=== PATIENT | male | born 1940 | race Caucasian/White ===

== ENCOUNTER → 2016-11-13 | Outpatient (CLI) | payer MEDICARE ==
[2016-11-13 09:48] LABS: BASO # 0.1 x10^3/uL (0.0-0.2); BASO % 1 % (0-3); EOS # 0.4 x10^3/uL (0.0-0.7); EOS % 6 % (0-3); HEMATOCRIT 41.9 % (39.0-53.0); HEMOGLOBIN 14.1 g/dL (13.0-17.5); LYMPH # 1.1 x10^3/uL (1.0-4.8); LYMPH % 16 % (24-48); MEAN CORPUSCULAR HEMOGLOBIN 30 pg (25-35); MEAN CORPUSCULAR HGB CONC 34 g/dL (31-37); MEAN CORPUSCULAR VOLUME 88 fL (79-100); MONO # 0.9 x10^3/uL (0.0-1.1); MONO % 13 % (0-9); NEUT # 4.3 x10^3uL (1.8-7.7); NEUT % 64 % (31-73); PLATELET COUNT 171 x10^3/uL (140-400); RED BLOOD COUNT 4.76 x10^6/uL (4.30-5.70); RED CELL DISTRIBUTION WIDTH 15.6 % (11.5-14.5); WHITE BLOOD COUNT 6.8 x10^3/uL (4.0-11.0)
[2016-11-13 09:53] LABS: ALBUMIN 3.1 g/dL (3.4-5.0); CALCIUM 8.2 mg/dL (8.5-10.1); CREATININE 1.8 mg/dL (0.7-1.3); GFR 36.8; MAGNESIUM 2.1 mg/dL (1.8-2.4); PHOSPHORUS 3.3 mg/dL (2.6-4.7); POTASSIUM 4.5 mmol/L (3.5-5.1)
[2016-11-13 19:08] LABS: CREAT RD UR 255.9 mg/dL (Not Estab.); MICRO CREAT RATIO 13.1 mg/g creat (0.0-30.0); MICROALB RD UR 33.5 ug/mL (Not Estab.); TOTAL PROTEIN CREATININE RATIO 86 mg/g creat (0-200); UR PROTEIN RD 22.1 mg/dL (Not Estab.)
[2016-11-14 13:11] LABS: CALCIUM PTH 8.3 mg/dL (8.6-10.2); CREATININE PTH 1.55 mg/dL (0.76-1.27); PTH INTACT 106 pg/mL (15-65)
== END | disposition home or self-care (01) ==
LOC: LAB 08:35
PROVIDERS: ATTEND Internal Medicine Nephrology
DX: I12.9 Hypertensive chronic kidney disease with stage 1 through stage 4 chronic kidney disease, or unspecified chronic kidney disease (principal); E11.22 Type 2 diabetes mellitus with diabetic chronic kidney disease; N18.3 Chronic kidney disease, stage 3 (moderate); D35.00 Benign neoplasm of unspecified adrenal gland; E83.51 Hypocalcemia; R80.9 Proteinuria, unspecified; Z68.25 Body mass index [BMI] 25.0-25.9, adult
CPT/HCPCS: 36415; 80069; 82043; 82570; 83735; 83970; 84156; 85027

== ENCOUNTER → 2017-02-04 | Outpatient (CLI) | payer MEDICARE ==
[2017-02-04 09:26] LABS: HEMATOCRIT 42.6 % (39.0-53.0); HEMOGLOBIN 14.1 g/dL (13.0-17.5)
[2017-02-04 09:34] LABS: ALBUMIN 3.1 g/dL (3.4-5.0); ALBUMIN/GLOBULIN RATIO 0.8 (1.0-1.7); CREATININE 1.8 mg/dL (0.7-1.3); GFR 36.8; MAGNESIUM 1.9 mg/dL (1.8-2.4); PHOSPHORUS 3.6 mg/dL (2.6-4.7); POTASSIUM 4.5 mmol/L (3.5-5.1); TOTAL BILIRUBIN 0.6 mg/dL (0.2-1.0); TOTAL PROTEIN 6.8 g/dL (6.4-8.2)
[2017-02-04 09:43] LABS: CLARITY,URINE CLEAR; COLOR,URINE YELLOW
[2017-02-04 09:44] LABS: BACTERIA,URINE 0 /HPF (0-FEW); BILIRUBIN,URINE NEG (NEG); GLUCOSE,URINE 100 mg/dL (NEG); HYALINE CASTS, URINE FEW /HPF; NITRITE,URINE NEG (NEG); RBC,URINE 0 /HPF (0-2); SQUAMOUS EPITHELIAL CELL,UR OCC /LPF; UROBILINOGEN,URINE 0.2 mg/dL (0.2 mg/dL); WBC,URINE RARE /HPF (0-4)
[2017-02-04 16:11] LABS: PREALBUMIN 21 mg/dL (9-32)
[2017-02-05 05:09] LABS: MICRO CREAT RATIO <31.3 mg/g creat (0.0-30.0); MICROALB RD UR <12.0 ug/mL (Not Estab.)
== END | disposition home or self-care (01) ==
LOC: LAB 08:36
PROVIDERS: ATTEND Internal Medicine Nephrology
DX: I12.9 Hypertensive chronic kidney disease with stage 1 through stage 4 chronic kidney disease, or unspecified chronic kidney disease (principal); N18.3 Chronic kidney disease, stage 3 (moderate); E11.29 Type 2 diabetes mellitus with other diabetic kidney complication; I70.1 Atherosclerosis of renal artery; E88.09 Other disorders of plasma-protein metabolism, not elsewhere classified; E21.3 Hyperparathyroidism, unspecified; D35.02 Benign neoplasm of left adrenal gland; R60.0 Localized edema; Z68.25 Body mass index [BMI] 25.0-25.9, adult
CPT/HCPCS: 36415; 80053; 80069; 81001; 82043; 82570; 83735; 84134; 85014; 85018

== ENCOUNTER → 2017-06-16 | Outpatient (CLI) | payer MEDICARE ==
--- NOTE | 2017-06-16 15:54 | RAD ---
Thyroid ultrasound, 06/16/2017: History: Right thyroid nodule The right lobe of the gland measures 5.9 x 2.4 x 2.7 cm while the left lobe of the gland measures 5.5 x 1.5 x 1.8 cm. The thyroid echo pattern is mildly heterogeneous. There is a 1.8 x 1.9 x 1.5 cm nodule in the anterior aspect of the right lobe of the gland. Its margins are smooth. It is wider than tall. It is predominantly cystic with echogenic septae. No associated calcifications are evident. The posterior contour of the left lobe of the gland is lobulated. A small isodense 15 x 7 mm thyroid nodule cannot be excluded. There are no suspicious features. There is a tiny 3 mm cyst in the lower pole of left lobe of the gland. IMPRESSION: Bilateral thyroid nodules as described above. No highly suspicious features are evident. Sonographic follow-up is suggested to establish stability.
== END | disposition home or self-care (01) ==
LOC: US 09:49
PROVIDERS: ATTEND Specialist
DX: E04.2 Nontoxic multinodular goiter (principal)
CPT/HCPCS: 76536

== ENCOUNTER → 2017-09-17 | Outpatient (CLI) | payer MEDICARE ==
[2017-09-17 11:22] LABS: CALCIUM 8.9 mg/dL (8.5-10.1); CREATININE 1.9 mg/dL (0.7-1.3); GFR 34.5; POTASSIUM 4.5 mmol/L (3.5-5.1)
== END | disposition home or self-care (01) ==
LOC: LAB 10:02
PROVIDERS: ATTEND Internal Medicine Interventional Cardiology
DX: I12.9 Hypertensive chronic kidney disease with stage 1 through stage 4 chronic kidney disease, or unspecified chronic kidney disease (principal); E11.22 Type 2 diabetes mellitus with diabetic chronic kidney disease; N18.3 Chronic kidney disease, stage 3 (moderate); I48.0 Paroxysmal atrial fibrillation
CPT/HCPCS: 36415; 80048

== ENCOUNTER 2021-01-08 12:44 | Observation (INO) | payer MEDICARE ==
[~2021-01-08] VITALS: Ht 167.6 cm; Wt 65.7 kg
[2021-01-08 13:10] LABS: BASO # 0.1 x10^3/uL (0.0-0.2); BASO % 0 % (0-3); EOS # 0.3 x10^3/uL (0.0-0.7); EOS % 2 % (0-3); HEMATOCRIT 41.9 % (39.0-53.0); LYMPH # 2.1 x10^3/uL (1.0-4.8); LYMPH % 15 % (24-48); MEAN CORPUSCULAR HEMOGLOBIN 30 pg (25-35); MEAN CORPUSCULAR HGB CONC 34 g/dL (31-37); MEAN CORPUSCULAR VOLUME 91 fL (79-100); MONO # 1.4 x10^3/uL (0.0-1.1); MONO % 10 % (0-9); NEUT # 10.1 x10^3uL (1.8-7.7); NEUT % 72 % (31-73); PLATELET COUNT 212 x10^3/uL (140-400); RED BLOOD COUNT 4.61 x10^6/uL (4.30-5.70); RED CELL DISTRIBUTION WIDTH 15.8 % (11.5-14.5)
--- NOTE | 2021-01-08 13:14 | PHYS DOC ---
General Adult EDM: Chief Complaint: MULTIPLE TRAUMA/FALL HPI: HPI: 80-year-old male presents after syncopal episode. Patient went to see an maxillofacial surgeon for consult today they ended up pulling 4 lower teeth. While he was waiting outside for his to pull out the truck, he had a syncopal episode and collapsed to the ground. This happened outside the [facility] entrance to our facility. ED staff responded to the scene. Patient only knows his name and date of . He does not remember the syncopal episode at all. He does not member falling. His provides the details of the accident. She further informs me that the patient fell on a ladder earlier today. He has skin tears of both knees. He did not hit his head at that time. He was acting normal after that accident. Review of Systems: Review of Systems: Unable to perform due to patient's current status. Physical Exam: PE: Constitutional: Well developed, well nourished, no acute distress, non-toxic a ppearance. [] HENT: Normocephalic, multiple skin tears and abrasions of the left face and scalp, bilateral external ears normal, oropharynx moist, recently extracted lower teeth, nose normal. [] Eyes: PERRLA, EOMI, conjunctiva normal, no discharge. [] Neck: Normal range of motion, no tenderness, supple, no stridor. [] Cardiovascular: Heart rate regular rhythm, no murmur [] Lungs & Thorax: Bilateral breath sounds clear to auscultation [] Abdomen: Bowel sounds normal, soft, no tenderness, no masses, no pulsatile masses. [] Skin: Multiple skin tears of the bilateral arms and bilateral legs. 2 lacerations of the left face [] Back: No tenderness, no CVA tenderness. [] Extremities: No tenderness, no cyanosis, no clubbing, ROM intact, no edema. [] Neurologic: Alert and oriented to self, normal motor function, normal sensory function, no focal deficits noted. [] Psychologic: Unable to assess. [] EKG: EKG: Irregular rhythm, rate 119, normal axis, no ST elevation or depression. [] Radiology/Procedures: Radiology/Procedures: [] Heart Score: C/O Chest Pain: N/A Risk Factors: Risk Factors: DM, Current or recent (<one month) smoker, HTN, HLP, family history of CAD, obesity. Risk Scores: Score 0 - 3: 2.5% MACE over next 6 weeks - Discharge Home Score 4 - 6: 20.3% MACE over next 6 weeks - Admit for Clinical Observation Score 7 - 10: 72.7% MACE over next 6 weeks - Early Invasive Strategies Course & Med Decision Making: Course & Med Decision Making Pertinent Labs and Imaging studies reviewed. (See chart for details) The patient's labs are remarkable for an elevated creatinine. It is similar to his previous in the chart. His INR is 2.6. I repaired the patient's wounds with sutures. See note below for details. Given his multiple wounds, Coumadin therapy, and his INR it is most prudent to admit the patient to the hospital overnight. The patient's mental status has improved. He is more aware and understanding of his surroundings. He still does not remember the fall. I spoke with Dr. uHrley and he has accepted the patient for admission. The patient's maxillofacial CT shows a left orbital wall fracture. See official read for more details. [] Dragon Disclaimer: Dragon Disclaimer: This electronic medical record was generated, in whole or in part, using a voice recognition dictation system. Laceration Repair Lac Repair Indication: [] 2 facial lacerations. Upper laceration 2 cm L-shaped. Lower laceration 1.5 cm linear Procedure: I obtained verbal consent from the patient and his spouse for suture repair of his 2 facial lacerations. The wounds were thoroughly irrigated with normal saline under pressure. No foreign bodies were found. I anesthetized the wounds with a total of 2 cc of 2% lidocaine without epinephrine. Both lacerations were repaired with 4-0 Ethilon suture in interrupted fashion. The upper laceration was repaired with 3 sutures. The lower laceration was repaired with 2 sutures. Total repaired wound length: 2 cm, 1.5 cm Other Items: Multiple surrounding skin tears The patient tolerated the procedure well. Complications: Surrounding skin tears, L-shaped laceration, proximity to eye. Departure Departure: Impression: Primary Impression: Syncope and collapse Additional Impressions: Laceration of face Abrasions of multiple sites Orbital wall fracture Disposition: ADMITTED INPATIENT Admitting Physician: Hermelinda Hurley Condition: STABLE Referrals: PREETHI MENA MD (PCP) DOUGLAS VAUGHN DO Jan 08, 2021 13:14
[2021-01-08 13:20] LABS: CALCIUM 8.6 mg/dL (8.5-10.1); CREATININE 1.8 mg/dL (0.7-1.3); GFR 36.4; POTASSIUM 4.1 mmol/L (3.5-5.1)
--- NOTE | 2021-01-08 13:25 | EKG ---
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
[2021-01-08 13:26] LABS: ALBUMIN 3.8 g/dL (3.4-5.0); ALBUMIN/GLOBULIN RATIO 1.2 (1.0-1.7); TOTAL PROTEIN 6.9 g/dL (6.4-8.2)
[2021-01-08 13:48] LABS: BILIRUBIN,URINE NEG (NEG); CLARITY,URINE CLEAR; COLOR,URINE YELLOW; GLUCOSE,URINE NEG (NEG); NITRITE,URINE NEG (NEG); UROBILINOGEN,URINE 0.2 mg/dL (0.2 mg/dL)
[2021-01-08 13:52] LABS: BACTERIA,URINE FEW /HPF (0-FEW); HYALINE CASTS, URINE MOD /HPF; RBC,URINE >40 /HPF (0-2); SQUAMOUS EPITHELIAL CELL,UR OCC /LPF
--- NOTE | 2021-01-08 13:57 | RAD ---
CT HEAD AND C-SPINE WO, CT MAXILLOFACIAL WITHOUT CONTRAST History: Reason: fall, hit head, LOC / Spl. Instructions: / History: Comparison: None. Technique: Noncontrast CT of the head, cervical spine and maxillofacial bones. Findings: CT HEAD: There is no evidence for intracranial mass or hemorrhage. There is no hydrocephalus or midline shift. No abnormal extra-axial fluid collections are present. No evidence of large territorial infarction. Marked hypodensity in the periventricular and deep white matter consistent with chronic microvascular ischemic change. Heavy calcification of the intracranial internal carotid arteries. The skull and scalp are within normal limits. CT CERVICAL SPINE: There is no evidence for fracture in the cervical spine. Alignment is normal. Multilevel degenerative disc and facet disease greatest at C6-C7. No destructive osseous lesions are seen. Emphysematous changes at the lung apices. Bilateral carotid bulb calcification. CT MAXILLOFACIAL: There is a nondisplaced fracture of the left zygomatic arch and left inferior orbital rim extending i nto the anterior and posterior maxillary rios. Postsurgical changes of the lenses bilaterally. No tethering of the extraocular muscles. No intraorbi mack fluid or edema. Left periorbital soft tissue swelling. Left greater than right frontal sinus fluid or and/or mucosal thickening. Trace bilateral ethmoid sin us opacification. Small fluid level in the left sphenoid and maxillary sinuses. Impression: 1. Nondisplaced fracture left CMC pattern fracture. Associated left periorbital soft tissue swelling and paranasal sinus fluid collections. 2. No acute intracranial findings. Chronic microvascular ischemic changes of the brain. 3. No acute findings in the cervical spine. ------- Exposure: One or more of the following individualized dose reduction techniques were utilized for thi s examination: 1. Automated exposure control 2. Adjustment of the mA and/or kV according to patient size 3. Use of iterative reconstruction technique. Electronically signed by: Reji Mitchell MD (01/08/2021 1:55 PM) [id number]
[2021-01-08] MEDS ORDERED: ONDANSETRON PF 4 MG/2 ML VIAL. IVP PRN (15:15)
[2021-01-08 17:17] VITALS: BP 137/64
--- NOTE | 2021-01-08 19:26 | NUR ---
Admission Note Patient admitted to floor from ED. Patient is alert and orientated x3. Patient is calm, pleasant, and able to verbalize needs. Patient was at home on a step ladder which tipped over while he was on it. Patient then went to doctors office to get teeth pulled as per appointment. After procedure patient was waiting outside for to pull up with car when patient fell down on concrete. Patient was unable to recall his fall or why he was in emergency room. Patient fx left orbital which x2 reconstructions done per ED physician. Patient also obtained skin abrasions to left hand and lower leg. No other acute concerns on patient.
[2021-01-08] MEDS ORDERED: VIT1TABL32 PO (21:17)
[2021-01-08] MEDS ORDERED: ASPI-630 PO (21:17)
[2021-01-08] MEDS ORDERED: INSU100I30 SQ (21:17)
[2021-01-08] MEDS ORDERED: FURO40TA4 PO (21:17)
[2021-01-08] MEDS ORDERED: WARF-31 PO (21:17)
[2021-01-08] MEDS ORDERED: ATOR40TA59 PO (21:17)
[2021-01-08] MEDS ORDERED: UMEC1DIS IH (21:17)
[2021-01-08] MEDS ORDERED: REPA1TAB6 PO (21:17)
[2021-01-08] MEDS ORDERED: CYCL1DRO EACHEYE (21:17)
[2021-01-08] MEDS ORDERED: TRIA80OI TP (21:17)
[2021-01-08] MEDS ORDERED: AMLO-187 PO (21:17)
[2021-01-08] MEDS ORDERED: ERGO500090 PO (21:17)
[2021-01-08] MEDS: IV 1/2 NORMAL SALINE 1,000 ML IV SCH (21:51)
[2021-01-08] MEDS: cycloSPORINE 0.05% OPTH 1 DROP DROPERETTE OU SCH (21:52)
[2021-01-08] MEDS ORDERED: amLODIPine BESYLATE 10 MG TABLET PO SCH (22:00)
[2021-01-08] MEDS ORDERED: ATORVASTATIN CALCIUM 20 MG TABLET PO SCH (22:00)
[2021-01-08 23:01] VITALS: BP 138/64
--- NOTE | 2021-01-09 00:58 | NUR ---
Pics taken of injuries to face and bilateral knees, placed in chart. Pt normally wears CPAP with 2L of O2 bled in at night. Pt unable to tolerate mask due to facial pain. Placed on NC at 2L for sleep.
[2021-01-09] MEDS ORDERED: ALBUTEROL SULFATE 2.5 MG/3 ML NEBU. ONE (05:13)
[2021-01-09] MEDS: ALBUTEROL SULFATE 2.5 MG/3 ML NEBU. NEB SCH ×2 (05:17→09:28)
[2021-01-09 06:05] VITALS: BP 162/64
[2021-01-09] MEDS ORDERED: CHLO15MO2 PO (07:06)
[2021-01-09] MEDS ORDERED: BUDESONIDE 0.5 MG/2 ML NEBU NEB SCH (08:00)
[2021-01-09] MEDS ORDERED: MULTIVITAMIN I-VITE TABLET. PO SCH (09:00)
[2021-01-09] MEDS ORDERED: INSULIN GLARGINE SYRINGE. SQ SCH (09:00)
[2021-01-09] MEDS ORDERED: CHLORHEXIDINE 0.12% 15 ML MOUTHWASH. SWSP SCH (09:00)
[2021-01-09] MEDS ORDERED: TRIAMCINOLONE ACETONIDE 0.1% TOPICAL CREAM 15GM TUBE. TP SCH (09:00)
--- NOTE | 2021-01-09 09:18 | DS ---
DATE OF DISCHARGE: 01/09/2021 ATTENDING PHYSICIAN: Dr. Baum. FINAL DISCHARGE DIAGNOSES: 1. Syncopal episode. 2. 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 3. Acute fracture of the left zygoma. 4. Chronic obstructive pulmonary disease. 5. Sleep apnea. 6. History of known coronary artery disease. 7. Critical aortic stenosis, scheduled for TAVR procedure. 8. Type 2 diabetes. HISTORY AND PHYSICAL: The patient is an 80-year-old gentleman, had recent dental surgery with tooth extraction. He was waiting to get in his truck, was picking him up. He had a syncopal episode, most likely due to his left ventricular outflow tract obstruction. He has critical aortic stenosis by history. He fell, sustaining injury to the face and a nondisplaced left zygoma fracture. PHYSICAL EXAMINATION: Please see my dictated note. PERTINENT LABORATORY AND X-RAY STUDIES: His INR was therapeutic at 2.6, hemoglobin was 14.4 with a white count of 14,000. Electrolytes within normal range. Creatinine is 1.8 mg/dL, which is about baseline for him. Glucose nonfasting was 148. CT of the head and face, maxillofacial CT was noted. COURSE IN THE HOSPITAL: The patient was admitted with syncopal episode. He was placed on telemetry. He had no further arrhythmias. The syncope is most likely due to his critical aortic stenosis. Diet was advanced. Coumadin held for 1 day. By the second hospital day, when I saw him, he was alert, oriented. He had no diplopia. He wanted to go home. He was fairly steady on his feet. I felt this is reasonable. He is scheduled to have his TAVR procedure done at [facility]. Therefore, he was discharged home with no changes in his meds. He will continue his Coumadin starting tomorrow. In addition, he will continue his amlodipine, aspirin, Lipitor, Restasis eyedrops, Lasix 40 mg daily, insulin, triamcinolone cream, Breo Anoro Ellipta, vitamin C and Coumadin dose is unchanged. He will follow up with Dr. Mena as well as his Nail Kegger. The patient was then discharged from our hospital in stable condition with explicit drug and followup care. JEANNA DR: Chacha TID: [id number] CC: PREETHI MENA MD
[2021-01-09] MEDS: cycloSPORINE 0.05% OPTH 1 DROP DROPERETTE OU SCH (09:42)
[2021-01-09] MEDS: IV 1/2 NORMAL SALINE 1,000 ML IV SCH (10:50)
--- NOTE | 2021-01-09 10:59 | HP ---
ATTENDING PHYSICIAN: Dr. Baum CHIEF COMPLAINT: Trauma to the face. HISTORY OF PRESENT ILLNESS: The patient is an 80-year-old gentleman with multiple medical issues. He was at his maxillofacial surgeon for a consult. He ended up having 4 teeth pulled. After the procedure, he was still recovering from some of the effect of the anesthetic. He stood up and had a syncopal episode and collapse to the ground. He hit his face. CT of the head demonstrated no acute intracranial process; however, he does have ecchymosis and a nondisplaced left zygoma fracture. There is also a crack of the thin left orbital wall. There is no extraocular muscles involvement. He is seen well. He was admitted overnight for observation. His provided details of accident. He does not remember falling. His past medical history is significant for coronary artery bypass and graft in year 1999, he is 21 years out. He also lately has been diagnosed with critical aortic stenosis. He was scheduled supposedly to have what he describes as a TAVR procedure at [facility] that has not been done yet. He is on Coumadin for his medical issues. He also has COPD. By the time I saw him the next morning, his vital signs were stable. He was eating, alert and he wanted to go home. I felt this is reasonable. PAST MEDICAL HISTORY: Significant for the aortic stenosis, COPD, sleep apnea. He already has oxygen at home. CURRENT MEDICATIONS: Reviewed. He has scheduled Coumadin 5 mg p.o. daily. He has no recorded allergies. He also takes amlodipine, aspirin, Lipitor, cyclosporine eyedrops, vitamin ____, Lasix 40 mg daily, insulin, triamcinolone, vitamin C and again the Coumadin as scheduled. 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 He lives with his , children are grown. FAMILY HISTORY: Unobtainable. REVIEW OF SYSTEMS: Significant for the syncopal episode, he does not remember. He denied any chest pain, palpitations, dizziness. All other systems reviewed and turned to be negative. PHYSICAL EXAMINATION: GENERAL: When I saw him, this is a pleasant elderly gentleman. INITIAL VITAL SIGNS: Showed a blood pressure of 136/64, pulse was 78 and regular. He was afebrile. Oxygen saturation 94% on room air. HEENT: Head is with trauma. He has extensive periorbital ecchymosis on the left. Extraocular muscles are intact. There is no diplopia. NECK: Supple, no bruits. LUNGS: Clear. CARDIOVASCULAR: Regular heart tones. No gallops. ABDOMEN: Soft. EXTREMITIES: Without edema. NEUROLOGIC: Function focally intact. Speech is fluent. Marine Driller intact PERTINENT LABORATORY STUDIES: Admission hemoglobin was 14.0 g/dL with a white count of 14,000. INR therapeutic at 2.6. Chemistry panel: BUN was 27, creatinine 1.8 mg%, nonfasting blood sugar 148. Cardiac enzymes negative for coronary ischemia. ASSESSMENT: 1. An 80-year-old gentleman with syncopal episode related to his aortic stenosis. He has significant left ventricular outflow tract obstruction causing his syncopal episode. 2. Critical aortic stenosis. 3. Known coronary artery disease with previous 4-vessel bypass and graft. 4. Chronic anticoagulation. 5. Acute nondisplaced fracture of the left zygoma. 6. Chronic obstructive pulmonary disease. 7. Sleep apnea. 8. Type 2 diabetes. PLAN: 1. Observation status. 2. Home medications continued: 3. I have held his Coumadin for 1 day. 4. Diet as tolerated. TANNER/DESTINEY/NANCY DR: TANNER/alyson TID: [id number] CC: PREETHI MENA MD
--- NOTE | 2021-01-09 11:46 | NUR ---
pt discharge instructions reviewed with pt and . all questions answered. discharge instructions and belongings sent with pt.
[2021-01-09] MEDS ORDERED: REPAGLINIDE 0.5 MG TABLET PO SCH (18:00)
== END 2021-01-09 11:49 | disposition home or self-care (01) ==
LOC: ER 12:44 → 1 SOUTH 15:11 → INTOOBSV 15:11
PROVIDERS: ADMIT Internal Medicine; ATTEND Internal Medicine
DX: S02.40FA Zygomatic fracture, left side, initial encounter for closed fracture (principal); S02.85XA Fracture of orbit, unspecified, initial encounter for closed fracture; S01.81XA Laceration without foreign body of other part of head, initial encounter; R55 Syncope and collapse; I35.0 Nonrheumatic aortic (valve) stenosis; I25.10 Atherosclerotic heart disease of native coronary artery without angina pectoris; E11.9 Type 2 diabetes mellitus without complications; G47.30 Sleep apnea, unspecified; J44.9 Chronic obstructive pulmonary disease, unspecified; Z79.899 Other long term (current) drug therapy; Z95.1 Presence of aortocoronary bypass graft; Z79.01 Long term (current) use of anticoagulants; W18.39XA Other fall on same level, initial encounter; Y93.89 Activity, other specified; Y92.89 Other specified places as the place of occurrence of the external cause; Y99.8 Other external cause status
CPT/HCPCS: 12013; 36415; 70450; 70486; 72125; 80053; 81001; 82947; 84484; 85025; 85610; 85730; 93005; 94640; 94760; 96361; 96374; 96375; 96376; 97116; 97163; 97166; 97530; 99285; G0378; J1815; J2405; J3010; J7030; J7613; G0379

== ENCOUNTER → 2021-01-14 | Outpatient (CLI) | payer MEDICARE ==
[2021-01-09 06:05] VITALS: BP 162/64
[~2021-01-14] MED LIST: AMLO-187 PO; ASPI-630 PO; ATOR40TA59 PO; CHLO15MO2 PO; CYCL1DRO EACHEYE; ERGO500090 PO; FURO40TA4 PO; INSU100I30 SQ; REPA1TAB6 PO; TRIA80OI TP; UMEC1DIS IH; VIT1TABL32 PO; WARF-31 PO
--- NOTE | 2021-01-14 15:01 | RAD ---
EXAM: Left knee, 3 views. HISTORY: Pain. Fall. COMPARISON: None. FINDINGS: 3 views of the left knee are obtained. There is no fracture, dislocation or subluxation. Th ere is prepatellar soft tissue prominence which may be pathologic or due to swelling and a history of trauma. No joint effusion is seen. There are vascular calcifications. IMPRESSION: No acute osseous finding. Electronically signed by: Frances Mendez MD (01/14/2021 2:58 PM) [id number]
== END ==
LOC: RAD 14:31
PROVIDERS: ATTEND Family Medicine
DX: M25.862 Other specified joint disorders, left knee (principal); M25.562 Pain in left knee
CPT/HCPCS: 73562

== ENCOUNTER 2021-02-20 09:17 | Inpatient (IN) | payer MEDICARE ==
[~2021-02-20] VITALS: Ht 167.6 cm; Wt 66.9 kg
[2021-02-20] MEDS ORDERED: IOHEXOL 350 MG/ML 100 ML VIAL. IV ONE (09:45)
[2021-02-20] MEDS ORDERED: DEXAMETHASONE SOD PHOS 10 MG/ML VIAL. IVP ONE (09:45)
[2021-02-20 10:00] LABS: BASO # 0.1 x10^3/uL (0.0-0.2); BASO % 1 % (0-3); EOS # 0.1 x10^3/uL (0.0-0.7); EOS % 1 % (0-3); HEMATOCRIT 34.8 % (39.0-53.0); HEMOGLOBIN 11.5 g/dL (13.0-17.5); LYMPH # 0.8 x10^3/uL (1.0-4.8); LYMPH % 6 % (24-48); MEAN CORPUSCULAR HEMOGLOBIN 29 pg (25-35); MEAN CORPUSCULAR HGB CONC 33 g/dL (31-37); MEAN CORPUSCULAR VOLUME 88 fL (79-100); MONO # 1.4 x10^3/uL (0.0-1.1); MONO % 11 % (0-9); NEUT # 10.3 x10^3uL (1.8-7.7); NEUT % 81 % (31-73); PLATELET COUNT 238 x10^3/uL (140-400); RED BLOOD COUNT 3.94 x10^6/uL (4.30-5.70); RED CELL DISTRIBUTION WIDTH 15.8 % (11.5-14.5); WHITE BLOOD COUNT 12.8 x10^3/uL (4.0-11.0)
--- NOTE | 2021-02-20 10:05 | PHYS DOC ---
Past History Past Medical History: CAD, CHF, COPD, Diabetes Past Surgical History: Coronary Bypass Surgery Additional Past Surgical Histo: Heart valve replacement Smoking: Quit Greater Than 1 Year Alcohol Use: None Drug Use: None General Adult EDM: Chief Complaint: SHORTNESS OF BREATH HPI: HPI: 80 year old male with history of COPD and CHF presents with 3 day history of productive cough and progressively worsening shortness of breath. Reports associated dyspnea with exertion that improves with rest and he noted blood in his sputum this morning. He also has noticed increased swelling in his ankles bilaterally. At home O2 sat was 80% this morning despite baseline use of 2L of O2/NC at home. Attempted using his Flovent inhaler this morning without improvement of symptoms. He took two doses of his Lasix yesterday without any improvement. Denies any known exposure to COVID. He has received both vaccinations of the Moderna vaccine. Denies fevers, chills, nausea/vomiting, headache, or chest pain. Review of Systems: Review of Systems: Constitutional: Denies fever or chills Eyes: Denies redness or eye pain HENT: Denies nasal congestion or sore throat Respiratory: Reports productive cough and shortness of breath Cardiovascular: Denies chest pain or palpitations GI: Denies abdominal pain, nausea, or vomiting : Denies dysuria or hematuria Musculoskeletal: Denies back pain or joint pain; reports bilateral leg swelling Integument: Denies rash or skin lesions Neurologic: Denies headache, focal weakness or sensory changes Complete systems were reviewed and found to be within normal limits, except as documented in this note. Current Medications: Current Meds: Current Medications Medications (Trade) Dose Ordered Sig/Smith Start Time Stop Time Status Last Admin Dose Admin Dexamethasone Sodium Phosphate (Decadron) 10 mg 1X ONCE 02/20/21 09:45 02/20/21 09:46 DC Iohexol (Omnipaque 350 Mg/ml) 100 ml 1X ONCE 02/20/21 09:45 02/20/21 09:46 DC Allergies: Allergies: Allergies Coded Allergies Type Severity Reaction Last Updated Verified No Known Drug Allergies 01/08/21 No Physical Exam: PE: Constitutional: Well developed, well nourished, no acute distress, non-toxic appearance HENT: Normocephalic, atraumatic Eyes: Conjunctiva normal, no discharge Neck: Normal range of motion, no tenderness, supple Lungs & Thorax: Apparent increased work of breathing with conversational dyspnea. Diminished breath sounds throughout. No wheezes or crackles auscultated. Heart regular rate and rhythm without murmurs. Abdomen: Soft, no tenderness Skin: Warm, dry, no erythema, no rash Back: No tenderness, no CVA tenderness Extremities: 1+ pitting ankle edema bilaterally. No tenderness, ROM intact Neurologic: Alert and oriented X 3, normal motor function, normal sensory function, no focal deficits noted Psychologic: Affect normal, judgment normal EKG: EKG: @1056 Afib at 97bpm, NO ST elevation, QRS 82ms, QT/QTc 356/456ms Radiology/Procedures: Radiology/Procedures: XR CHEST 1V History: Cough, short of air. Comparison: 09/02/2017 Technique: Portable AP radiograph of the chest. Findings: There is a moderate right pleural effusion and right greater than left lower lobe predominant airspace opacities. Postsurgical changes from aortic valve replacement and CABG. Prominent heart size. Pulmonary vasculature is mildly ind istinct. Degenerative changes of the shoulders and spine. Soft tissues are unremarkable. Impression: 1. Moderate right pleural effusion with right greater than left lower lobe predominant airspace opacities may represent pulmonary edema versus multifocal infection. Electronically signed by: Reji Mitchell MD (02/20/2021 10:13 AM) [id number] Heart Score: C/O Chest Pain: N/A Course & Med Decision Making: Course & Med Decision Making 80 year old male with history of COPD and CHF presents with history and physical exam consistent with CHF exacerbation. Patient hypoxic on arrival and placed on 4L O2/NC. O2 sat remained in the high-80s throughout stay in the ED. Labs and imaging obtained and posted to chart. Patient administered Duoneb breathing treatment and dexamethasone for symptomatic relief. BNP returned >6000 and he was started IV Bumex. INR is supratherapeutic at this time, making PE unlikely despite elevated D-Dimer. COVID unlikely as patient has been vaccinated and rapid COVID testing for admission negative. Patient requiring admission for further evaluation and treatment. Discussed with Dr. Baum (hospitalist) who is in agreement with admission. Discussed findings and plan with patient, who acknowledges understanding and agreement. Diana Disclaimer: Diana Disclaimer: This electronic medical record was generated, in whole or in part, using a voice recognition dictation system. Departure Departure: Impression: Primary Impression: Acute exacerbation of CHF (congestive heart failure) Qualified Codes: I50.9 - Heart failure, unspecified Additional Impressions: Hypoxia Supratherapeutic INR Elevated d-dimer Disposition: ADMITTED INPATIENT Admitting Physician: Bill Baum Condition: STABLE Referrals: PREETHI MENA MD (PCP) Critical Care Time Critical care time was 30 minutes which includes time at bedside, spent in discussion of patient's care with specialists and/or family members, with interpretation of laboratory and/or radiological studies and is exclusive of procedures. RADHA COHEN DO Feb 20, 2021 10:05
[2021-02-20 10:09] LABS: ANION GAP 12 (6-14); BLOOD UREA NITROGEN 54 mg/dL (8-26); BUN/CREATININE RATIO 27 (6-20); CALCIUM 8.1 mg/dL (8.5-10.1); CARBON DIOXIDE 26 mmol/L (21-32); CHLORIDE 101 mmol/L (98-107); GFR 32.2; GLUCOSE 194 mg/dL (70-99); POTASSIUM 4.7 mmol/L (3.5-5.1); SODIUM 139 mmol/L (136-145)
[2021-02-20] MEDS ORDERED: IPRATRPIUM/ALBUTEROL 0.5/2.5MG 3 ML NEBU. NEB ONE (10:15)
--- NOTE | 2021-02-20 10:15 | RAD ---
XR CHEST 1V History: Cough, short of air. Comparison: 09/02/2017 Technique: Portable AP radiograph of the chest. Findings: There is a moderate right pleural effusion and right greater than left lower lobe predominant airspac e opacities. Postsurgical changes from aortic valve replacement and CABG. Prominent heart size. Pulmo nary vasculature is mildly indistinct. Degenerative changes of the shoulders and spine. Soft tissues are unremarkable. Impression: 1. Moderate right pleural effusion with right greater than left lower lobe predominant airspace opac ities may represent pulmonary edema versus multifocal infection. Electronically signed by: Reji Mitchell MD (02/20/2021 10:13 AM) [id number]
[2021-02-20 10:18] LABS: BACTERIA,URINE 0 /HPF (0-FEW); BILIRUBIN,URINE NEG (NEG); CLARITY,URINE CLEAR; COLOR,URINE YELLOW; GLUCOSE,URINE NEG (NEG); HYALINE CASTS, URINE FEW /HPF; NITRITE,URINE NEG (NEG); SQUAMOUS EPITHELIAL CELL,UR MOD /LPF; UROBILINOGEN,URINE 0.2 mg/dL (0.2 mg/dL)
[2021-02-20 10:26] LABS: ALBUMIN 3.4 g/dL (3.4-5.0); ALBUMIN/GLOBULIN RATIO 1.1 (1.0-1.7); ALK PHOS 107 U/L (46-116); ALT (SGPT) 23 U/L (16-63); AST (SGOT) 20 U/L (15-37); LIPASE 172 U/L (73-393); TOTAL BILIRUBIN 0.8 mg/dL (0.2-1.0); TOTAL PROTEIN 6.6 g/dL (6.4-8.2)
[2021-02-20 10:43] LABS: BGAS PH 7.41 (7.35-7.46)
[2021-02-20] MEDS ORDERED: ASPIRIN CHEWABLE 81 MG TABLET. ONE (10:52)
[2021-02-20] MEDS ORDERED: BUMETANIDE 1 MG/4 ML VIAL. IVP ONE (11:00)
[2021-02-20] MEDS ORDERED: ASPIRIN ENTERIC COATED 325 MG TABLET.DR. PO ONE (11:00)
--- NOTE | 2021-02-20 11:04 | EKG ---
[address] [address] Test Date: 2021-02-20 Test Time: 10:56:03 Pat Name: DEMETRA MILTON Department: Room: Gender: M Voice And Data Technician: : 1940 Requested By: RADHA COHEN Order Number: [id number] Reading MD: Measurements Intervals Sandy Rate: 97 P: [place]: QRS: 25 QRSD: 82 T: 7 QT: 356 QTc: 456 Interpretive Statements IRREGULAR RHYTHM, NO P-WAVE FOUND OTHERWISE NORMAL ECG RI6.02 No previous ECG available for comparison
[2021-02-20] MEDS ORDERED: ONDANSETRON PF 4 MG/2 ML VIAL. IVP PRN (11:15)
[2021-02-20] MEDS ORDERED: DEXTROSE 50% 25 GM / 50ML DISP.SYRIN. IV PRN (11:15)
[2021-02-20] MEDS: INSULIN LISPRO 300 UNITS/3 ML VIAL. SQ SCH ×3 (12:00→20:33)
--- NOTE | 2021-02-20 13:31 | HP ---
ADMIT DATE: 02/20/2021 ATTENDING PHYSICIAN: Dr. Baum. CHIEF COMPLAINT: Shortness of breath. HISTORY OF PRESENT ILLNESS: The patient is an 80-year-old gentleman with multiple cardiac and pulmonary issues. He presented to the ED with a 3-day history of increasing shortness of breath, dyspnea with minimal exertion, productive cough and progressively worsening shortness of breath. Chest x-ray in the ED showed vascular congestion and cardiomegaly. At home, he is on supplemental oxygen. Saturations were marginal. He took several extra doses of Lasix. He has significant edema and bilateral pleural effusions. He has received both vaccinations of Moderna, a brand. He denied any COVID exposure. He is admitted then with acute on chronic congestive heart failure. He is a poor historian and does not watches or monitor his daily weights. PAST MEDICAL HISTORY: Significant for chronic obstructive pulmonary disease. He had quit smoking many years ago. He has type 2 diabetes, congestive heart failure and coronary artery disease. He also has valvular heart disease, on chronic anticoagulation. He does not know the type of heart valve, but I could hear a distinct mechanical click of a metal prosthetic valve. His INR was 4.1 and coumadin has been held. ALLERGIES: He has no known drug allergies. CURRENT MEDICATIONS: Include the following: He was on amlodipine 10 mg daily, aspirin 1 daily, Lipitor 40 mg daily, cyclosporine eyedrops, vitamin D2, Lasix 40 mg daily, regular and Lantus insulin, Anoro Ellipta, vitamin D, and Coumadin 5 mg p.o. daily. FAMILY HISTORY: Mom of complications of heart disease at age 73. Dad of a heart attack at age 61. SOCIAL HISTORY: He is retired. He has no recorded drug abuse. REVIEW OF SYSTEMS: Significant for the pedal edema, dyspnea with minimal exertion and some orthopnea at night. No recent fevers, chills, cough, congestion. All other systems reviewed and turned to be negative. PHYSICAL EXAMINATION: GENERAL: When I saw him, this is a pleasant elderly gentleman. INITIAL VITAL SIGNS: Showed a blood pressure of 124/81, pulse is 77 and regular, temperature 98.6 degrees Fahrenheit, oxygen saturation 89% on 4 liters by nasal cannula. HEENT: Head is without trauma. Pupils are reactive. Sclerae nonicteric. Oropharynx is clear. NECK: Supple, no bruits identified. LUNGS: Diminished breath sounds at both bases. CARDIOVASCULAR: Showed regular heart tones. No gallops. ABDOMEN: Soft, scaphoid, nontender. EXTREMITIES: Showed 2+ edema. NEUROLOGIC: Focally intact. Speech is fluent. SKIN: Warm and dry. Chest x-ray in the ED showed a moderate right-sided pleural effusion, right side greater than the left. There is some lower lobe predominant airspace opacities, postsurgical changes from aortic valve repair and CABG are noted. Pulmonary vasculature is indistinct, degenerative changes of the spine. LABORATORY STUDIES: His admission hemoglobin was 11.5 g/dL, white count 12,800. Electrolytes, creatinine is 2.0 mg % with a BUN of 54. Nonfasting blood sugar 194. Initial cardiac enzymes 0.02. BNP was 6400. ASSESSMENT: 1. An 80-year-old gentleman with acute on chronic congestive heart failure. 2. Bilateral pleural effusion. 3. Coronary artery disease with previous coronary artery bypass surgery. 4. 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 I do hear the crisp closure of a mechanical valve. 5. Chronic anticoagulation. 6. Coagulopathy without any active bleeding. 7. Chronic obstructive pulmonary disease. 8. Type 2 diabetes. PLAN: 1. Admit to the inpatient telemetry unit. 2. Diuresis Lasix twice a day. 3. Serial chemistries. 4. Continue other home meds. 5. Diabetic diet. 6. Coumadin has been held. 7. Follow up serial INRs. PROGNOSIS: Guarded. EDITA DR: Chacha TID: [id number] CC: PREETHI MENA MD
[2021-02-20 13:52] VITALS: BP 146/57
[2021-02-20] MEDS ORDERED: DILT360T7 PO (14:06)
[2021-02-20 19:46] VITALS: BP 147/52
[2021-02-20] MEDS: amLODIPine BESYLATE 10 MG TABLET PO SCH (20:09)
[2021-02-20] MEDS ORDERED: INSULIN NPH/REG HUM 70/30 300 UNITS/3 ML VIAL. SQ SCH (20:45)
[2021-02-20] MEDS ORDERED: INSULIN LISPRO 300 UNITS/3 ML VIAL. SQ ONE (20:45)
[2021-02-20] MEDS ORDERED: TRIAMCINOLONE ACETONIDE 0.5% TOPICAL CREAM 15GM TUBE. TP SCH (21:00)
[2021-02-20 23:05] VITALS: BP 132/68
[2021-02-21] VITALS (9 sets, daily range): BP systolic 121–149; BP diastolic 53–71
[2021-02-21 06:15] LABS: CALCIUM 8.5 mg/dL (8.5-10.1); CREATININE 2.5 mg/dL (0.7-1.3); GFR 24.9; POTASSIUM 4.5 mmol/L (3.5-5.1)
[2021-02-21] MEDS: FUROSEMIDE 100 MG/10 ML VIAL IVP SCH (08:03)
[2021-02-21] MEDS: ASPIRIN CHEWABLE 81 MG TABLET. PO SCH (08:03)
[2021-02-21] MEDS: ATORVASTATIN CALCIUM 20 MG TABLET PO SCH (08:03)
[2021-02-21] MEDS: INSULIN GLARGINE SYRINGE. SQ SCH (08:21)
[2021-02-21] MEDS ORDERED: TRIAMCINOLONE ACETONIDE 0.1% TOPICAL CREAM 15GM TUBE. TP SCH (09:00)
--- NOTE | 2021-02-21 09:41 | PN ---
DATE: 02/21/2021 ATTENDING PHYSICIAN: Dr. Baum. SUBJECTIVE: He is breathing better. He is still dyspneic with minimal exertion. He was able to sleep better. OBJECTIVE FINDINGS: VITAL SIGNS: Blood pressure this morning is 149/69, pulse is 74 and regular. He is afebrile. Oxygen saturation 93% on 4 liters by nasal cannula. HEENT AND NECK: Head is without trauma. Pupils are reactive. Sclerae nonicteric. Venous pressure is distended at 45 degrees. LUNGS: Bibasilar crackles. CARDIOVASCULAR: Showed distant heart tones. No rubs. ABDOMEN: Soft. EXTREMITIES: Show trace edema. NEUROLOGIC: Focally intact. SKIN: Warm and dry. PERTINENT LABORATORY STUDIES: INR is still pending. Creatinine today is up to 2.5 mg/dL with a BUN of 69. Nonfasting blood sugar 193. Hemoglobin is 11.5 g/dL with a white count of 12,800. ASSESSMENT: 1. An 80-year-old gentleman with acute on chronic congestive heart failure. 2. History of valvular heart disease. He had a recent TAVR procedure at [facility]. 3. Coagulopathy, on Coumadin. 4. Aortic stenosis by history. 5. Paroxysmal atrial fibrillation. 6. Chronic kidney disease stage III. 7. Chronic obstructive pulmonary disease with acute on chronic respiratory failure. PLAN: 1. Continue diuresis as ordered. 2. Serial chemistries. 3. Coumadin has been on hold until his INR drifts down. 4. Diet as tolerated. 5. I will discuss with his short-term and long-term care. NED DR: Chacha TID: [id number] CC: PREETHI MENA MD
[2021-02-21] MEDS: INSULIN LISPRO 300 UNITS/3 ML VIAL. SQ SCH ×2 (12:12→17:29)
[2021-02-21] MEDS ORDERED: methylPREDNISolone SOD SUCC PF 40 MG/ML VIAL. IV ONE (15:45)
[2021-02-21 16:24] LABS: BGAS PH 7.46 (7.35-7.46)
[2021-02-21] MEDS: ALBUTEROL SULFATE 2.5 MG/3 ML NEBU. NEB SCH ×2 (17:11→18:00)
[2021-02-21] MEDS ORDERED: MORPHINE SULFATE 2 MG/ML DISP.SYRIN. IV PRN (19:45)
[2021-02-21] MEDS: methylPREDNISolone SOD SUCC PF 40 MG/ML VIAL. IV SCH (21:40)
[2021-02-21] MEDS: amLODIPine BESYLATE 10 MG TABLET PO SCH (21:40)
[2021-02-22] VITALS (7 sets, daily range): BP systolic 134–145; BP diastolic 49–62
[2021-02-22] MEDS: ALBUTEROL SULFATE 2.5 MG/3 ML NEBU. NEB SCH ×3 (00:15→13:24)
[2021-02-22 06:28] LABS: CALCIUM 8.5 mg/dL (8.5-10.1); CREATININE 2.9 mg/dL (0.7-1.3); POTASSIUM 4.8 mmol/L (3.5-5.1)
[2021-02-22] MEDS: ATORVASTATIN CALCIUM 20 MG TABLET PO SCH (08:59)
[2021-02-22] MEDS: FUROSEMIDE 100 MG/10 ML VIAL IVP SCH (09:00)
[2021-02-22] MEDS: ASPIRIN CHEWABLE 81 MG TABLET. PO SCH (09:09)
[2021-02-22] MEDS: methylPREDNISolone SOD SUCC PF 40 MG/ML VIAL. IV SCH (09:10)
[2021-02-22] MEDS: INSULIN LISPRO 300 UNITS/3 ML VIAL. SQ SCH ×2 (09:56→13:25)
[2021-02-22] MEDS: INSULIN GLARGINE SYRINGE. SQ SCH (09:57)
--- NOTE | 2021-02-22 17:51 | DS ---
DATE OF DISCHARGE: 02/22/2021 ATTENDING PHYSICIAN: Dr. Baum. FINAL DISCHARGE DIAGNOSES: 1. Ltnny-ql-cngxmqu congestive heart failure. 2. Nktrz-rr-giwyggf respiratory failure. 3. Chronic obstructive pulmonary disease. 4. Chronic kidney failure. 5. Mechanical heart valve. 6. Recent transcatheter aortic valve replacement procedure. 7. Chronic anticoagulation. 8. Coagulopathy without active bleeding. 9. Type 2 diabetes. HISTORY AND PHYSICAL: The patient is an 80-year-old gentleman with a recent TAVR procedure at [facility]. He has aortic stenosis. He was admitted in with increasing shortness of breath. There was underlying COPD. He has bilateral pleural effusions. We were limited as to how much diuresis we can give due to also chronic kidney failure. PHYSICAL EXAMINATION: Please see the dictated note. PERTINENT LABORATORY AND X-RAY STUDIES: Admission hemoglobin was 11.5 grams, white count 12,800. INR was 4.2. This will be followed up with subsequent INR. The Coumadin was held. Chemistry panel: Nonfasting blood sugar in the mid 200s, potassium 4.8 mEq. Creatinine is 2.0, repeated was 2.5 and up to 2.9 mg percent the next day. Arterial blood gases done on the second hospital day showed a pH of 7.46, pCO2 of 29, a pO2 of 48 on 5 liters of supplemental oxygen. COURSE IN THE HOSPITAL: The patient was admitted with congestive heart failure, chronic respiratory failure, chronic kidney failure. He also had a coagulopathy. We held the Coumadin. He received intravenous Lasix with slight improvement, but his creatinine was elevated due to the diuresis. Therefore, on the second hospital day, arrangements were made for the patient to go to the ICU. BiPAP was initiated given the abnormal ABG. We had a discussion regarding aggressive care. The called [facility] and on the third day, arrangements were made for the patient to be transferred to [facility] in care of the cardiology services. Dr. Purvis is the receiving physician. Therefore, we made arrangements for ambulance transfer to [facility] for further treatment of his chronic medical issues. His discharge meds will include amlodipine 10 mg daily, aspirin, Lipitor, cyclosporine eye drop, diltiazem 360 daily, vitamin D2, Lasix as scheduled, insulin regular and Lantus, triamcinolone cream, Anoro Ellipta inhalers and Coumadin to be restarted at 5 mg daily with subsequent INR. His prognosis is guarded. We were able to get him off the BiPAP the next day and he was managed with adequate saturations on 5 liters by nasal cannula. The patient was then discharged from our hospital in stable condition with explicit drug and followup care. Total discharge time spent [address]: Chacha TID: [id number] CC: PREETHI MENA MD
--- NOTE | 2021-02-22 21:04 | PN ---
DATE: 02/22/2021 ATTENDING PHYSICIAN: Dr. Baum. SUBJECTIVE: Still dyspneic, yesterday he was in edilberto respiratory failure. We had to initiate BIPAP and he was moved to intensive care unit. He has tolerated well. He is keeping the seal on and seems to be comfortable this morning. He is oxygenating better. OBJECTIVE FINDINGS: VITAL SIGNS: Blood pressure this morning is 145/58, pulse 85 and regular. He is afebrile. Oxygen saturation 93% on BiPAP 16/8 parameters. HEENT: Head is without trauma. Pupils are reactive. Sclerae nonicteric. Oropharynx clear. NECK: Supple. LUNGS: Shallow respirations. CARDIOVASCULAR: Showed regular heart tones. ABDOMEN: Soft. EXTREMITIES: Without edema. NEUROLOGIC: Focally intact. LABORATORY DATA: Arterial blood gas done yesterday showed a pH of 7.46, pCO2 of 29 and a pO2 of 48 on high dose oxygen. Chest x-ray on admission noted. ASSESSMENT: 1. An 80-year-old gentleman with acute on chronic respiratory failure. 2. Acute on chronic congestive heart failure. 3. Aortic stenosis and recent TAVR procedure. 4. Chronic obstructive pulmonary disease. 5. Acute on chronic renal failure. 6. Chronic anticoagulation. 7. Paroxysmal atrial fibrillation. PLAN: 1. BiPAP is ordered. 2. Followup chemistries. His creatinine was up to 2.9 mg percent today. 3. Diuresis. 4. We will try to wean him off the BiPAP. 5. I am trying to ascertain the code status. GRISELDA DR: Chacha TID: [id number] CC: PREETHI MENA MD
[2021-03-06] MEDS ORDERED: NON FORMULARY ITEM (Ergocalciferol (Vitamin D2) (Vitamin D2) 1,250 MCG) PO SCH (09:00)
== END 2021-02-22 14:15 | disposition short-term general hospital (02) | DRG 291 ==
LOC: ER 09:17 → 1 SOUTH 11:13 → ICU 02-21 16:44
PROVIDERS: ADMIT Hospitalist; ATTEND Hospitalist
PROC: 5A09357 Assistance with Respiratory Ventilation, Less than 24 Consecutive Hours, Continuous Positive Airway Pressure (ICD-10-PCS; principal; 2021-02-21)
DX: I50.23 Acute on chronic systolic (congestive) heart failure (principal); J96.21 Acute and chronic respiratory failure with hypoxia; D68.9 Coagulation defect, unspecified; N17.9 Acute kidney failure, unspecified; I25.10 Atherosclerotic heart disease of native coronary artery without angina pectoris; E11.22 Type 2 diabetes mellitus with diabetic chronic kidney disease; J44.9 Chronic obstructive pulmonary disease, unspecified; I48.0 Paroxysmal atrial fibrillation; I35.0 Nonrheumatic aortic (valve) stenosis; N18.30 Chronic kidney disease, stage 3 unspecified; T50.2X5A Adverse effect of carbonic-anhydrase inhibitors, benzothiadiazides and other diuretics, initial encounter; Z95.2 Presence of prosthetic heart valve; Z20.822 Contact with and (suspected) exposure to COVID-19; Z95.1 Presence of aortocoronary bypass graft; Z87.891 Personal history of nicotine dependence; Z82.49 Family history of ischemic heart disease and other diseases of the circulatory system; Z79.01 Long term (current) use of anticoagulants
CPT/HCPCS: 36415; 36600; 71045; 80048; 80053; 81001; 82553; 82803; 82947; 83605; 83690; 83880; 84484; 85025; 85379; 85610; 85730; 87040; 87426; 93005; 94640; 94660; 96374; 96375; J1100; J1815; J2920; J3490; U0003; 99291-25; J7613

== ENCOUNTER 2021-03-28 20:58 | Inpatient (IN) | payer MEDICARE ==
[~2021-03-28] VITALS: Ht 167.6 cm; Wt 67.6 kg
[~2021-03-28 20:58] MED LIST changes: +DILT360T7 PO
--- NOTE | 2021-03-28 21:42 | PHYS DOC ---
Past History Past Medical History: CAD, CHF, COPD, Diabetes Additional Past Medical Histor: valve replacement 3 weeks ago Past Surgical History: No Surgical History Additional Past Surgical Histo: Heart valve replacement Smoking: Quit Greater Than 1 Year Alcohol Use: Occasionally Drug Use: None Adult General Chief Complaint Chief Complaint: SHORTNESS OF BREATH HPI HPI Patient is an 80-year-old male with a past medical history significant for CAD, CHF, COPD and insulin-dependent diabetes who presents to the emergency [facility] with a chief complaint of shortness of breath over the last couple of days, worse than usual. Denies any recent traumas, travels, known illnesses, fevers, chest pain, abdominal pain, nausea, vomiting, dysuria, hematuria or blood in the stool. States has been taking all his medications as prescribed. Review of Systems Review of Systems Review of systems otherwise unremarkable except noted in HPI Allergies Allergies Allergies Coded Allergies Type Severity Reaction Last Updated Verified No Known Drug Allergies 03/28/21 No Physical Exam Physical Exam Constitutional: Well developed, well nourished, no acute distress, non-toxic appearance. [] HENT: Normocephalic, atraumatic, bilateral external ears normal, oropharynx moist, no oral exudates, nose normal. [] Eyes: PERRLA, EOMI, conjunctiva normal, no discharge. [] Neck: Normal range of motion, no tenderness, supple, no stridor. [] Cardiovascular: Sinus tachycardia Lungs & Thorax: Bilateral global rhonchi with tachypnea on room air and hypoxia on room air Abdomen: soft, no tenderness, no masses, no pulsatile masses. [] Skin: Warm, dry, no erythema, no rash. [] Back: No tenderness, no CVA tenderness. [] Extremities: No tenderness, no cyanosis, no clubbing, ROM intact, no edema. [] Neurologic: Alert and oriented X 3, no focal deficits noted. [] Psychologic: Affect normal, judgement normal, mood normal. [] Current Patient Data Vital Signs Vital Signs Date Time Temp Pulse Resp B/P (MAP) Pulse Ox O2 Delivery O2 Flow Rate FiO2 03/28/21 21:19 98.8 142 30 147/66 (93) 94 Nasal Cannula 2.0 EKG EKG [] Radiology/Procedures Radiology/Procedures [] Heart Score C/O Chest Pain: No Risk Factors: Risk Factors: DM, Current or recent (<one month) smoker, HTN, HLP, family history of CAD, obesity. Risk Scores: Risk Factors: DM, Current or recent (<one month) smoker, HTN, HLP, family history of CAD, obesity. Course & Med Decision Making Course & Med Decision Making Patient is an 80-year-old male who presents to the emergency department with a chief complaint of shortness of breath Vital signs notable for sinus tachycardia, tachypnea and hypoxia on room air placed on 3 L nasal cannula to get oxygen approximately 93%. Placed on the monitor with IV access established and IV fluid begun. Given breathing treatment given COPD as well as steroids. Started on Levaquin given concern for sepsis. Started on diuresis. Obtain blood cultures. Laboratory analysis notable for leukocytosis, elevated BNP, elevated creatinine and hyponatremia. Discussed all findings with family and recommended admission to [facility] for continued evaluation and treatment of his hypoxic respiratory distress secondary to most likely pulmonary edema versus pneumonia or combination which is more likely. Dragon Disclaimer Dragon Disclaimer This electronic medical record was generated, in whole or in part, using a voice recognition dictation system. Departure Departure: Impression: Primary Impression: Shortness of breath Additional Impressions: Hypoxia [place] (acute kidney injury) Hyponatremia Elevated brain natriuretic peptide (BNP) level Disposition: ADMITTED INPATIENT Admitting Physician: Hermelinda Hurley Condition: IMPROVED Referrals: PREETHI MENA MD (PCP) Problem Qualifiers NIMO ALVES MD Mar 28, 2021 21:42
[2021-03-28 21:52] LABS: BASO # 0.1 x10^3/uL (0.0-0.2); BASO % 0 % (0-3); EOS # 0.1 x10^3/uL (0.0-0.7); EOS % 1 % (0-3); HEMATOCRIT 34.8 % (39.0-53.0); HEMOGLOBIN 11.3 g/dL (13.0-17.5); LYMPH # 0.9 x10^3/uL (1.0-4.8); LYMPH % 6 % (24-48); MEAN CORPUSCULAR HEMOGLOBIN 28 pg (25-35); MEAN CORPUSCULAR HGB CONC 33 g/dL (31-37); MEAN CORPUSCULAR VOLUME 86 fL (79-100); MONO # 1.5 x10^3/uL (0.0-1.1); MONO % 9 % (0-9); NEUT % 84 % (31-73); PLATELET COUNT 224 x10^3/uL (140-400); RED BLOOD COUNT 4.07 x10^6/uL (4.30-5.70); WHITE BLOOD COUNT 15.5 x10^3/uL (4.0-11.0)
[2021-03-28] MEDS ORDERED: CONTRAST GIVEN. MC PRN (22:00)
[2021-03-28] MEDS ORDERED: IV RINGERS SOLUTION,LACTATED 1,000 ML IV ONE (22:00)
[2021-03-28] MEDS ORDERED: DEXAMETHASONE 4 MG TABLET PO ONE (22:00)
[2021-03-28] MEDS ORDERED: IPRATRPIUM/ALBUTEROL 0.5/2.5MG 3 ML NEBU. NEB ONE (22:00)
[2021-03-28 22:03] LABS: CALCIUM 8.9 mg/dL (8.5-10.1); CREATININE 1.8 mg/dL (0.7-1.3); GFR 36.4; POTASSIUM 4.4 mmol/L (3.5-5.1)
[2021-03-28 22:09] LABS: ALBUMIN 3.6 g/dL (3.4-5.0); ALBUMIN/GLOBULIN RATIO 1.1 (1.0-1.7); TOTAL BILIRUBIN 0.8 mg/dL (0.2-1.0)
[2021-03-28] MEDS ORDERED: IOHEXOL 300 MG/ML 75 ML VIAL. IV ONE (22:30)
[2021-03-28 22:33] LABS: % BANDS 3 % (0-9); % LYMPHS 4 % (24-48); % MONOS 9 % (0-10); % SEGS 84 % (35-66); PLT ESTIMATE ADEQUATE (ADEQUATE)
[2021-03-28 22:57] LABS: CLARITY,URINE CLEAR; COLOR,URINE YELLOW
[2021-03-28 22:58] LABS: BACTERIA,URINE 0 /HPF (0-FEW); BILIRUBIN,URINE NEG (NEG); GLUCOSE,URINE NEG (NEG); NITRITE,URINE NEG (NEG); RBC,URINE RARE /HPF (0-2); SQUAMOUS EPITHELIAL CELL,UR OCC /LPF; WBC,URINE RARE /HPF (0-4)
--- NOTE | 2021-03-28 23:02 | EKG ---
[address] [address] Test Date: 2021-03-28 Test Time: 21:21:22 Pat Name: DEMETRA ELLSWORTHGabeJazzy Department: Room: Gender: M Stripe Matcher: : 1940 Requested By: NIMO ALVES Order Number: [id number] Reading MD: Measurements Intervals [place] Rate: 140 P: -28 MS: 142 QRS: 12 QRSD: 82 T: 174 QT: 282 QTc: 434 Interpretive Statements SINUS TACHYCARDIA NO SPECIFIC ECG ABNORMALITIES RI6.02 No previous ECG available for comparison
[2021-03-28] MEDS ORDERED: FUROSEMIDE 40 MG/4 ML VIAL IVP ONE (23:30)
--- NOTE | 2021-03-28 23:32 | RAD ---
EXAM: CT OF THE CHEST WITHOUT CONTRAST. HISTORY: Shortness of breath. TECHNIQUE: Computed tomography of the chest was performed without intravenous contrast. One or more o f the following individualized dose reduction techniques were utilized for this examination: 1. Automated exposure control. 2. Adjustment of the mA and/or kV according to patient size. 3. Use of iterative reconstruction technique. COMPARISON: None. FINDINGS: Images of the upper abdomen reveal a 19 x 15 mm left adrenal nodule measuring less than 0 H [place] units, consistent with a benign adenoma. There are calcified granulomas in the spleen. Bone windows reveal no suspicious lesions. Prominent mediastinal lymph nodes are likely reactive in this setting. A lateral aortic node on image 31 measures 18 x 15 mm. There are small bilateral pleural effusions. There is no pericardial effusio n. The heart is mildly enlarged. There are changes of coronary artery bypass grafting and aortic valv e repair. The main pulmonary artery measures 3.4 cm. Interstitial infiltrates have a basilar and perihilar predominant. There is mild to moderate centrilo bular and paraseptal emphysema. There are limitations from respiratory motion artifact. IMPRESSION: 1. Interstitial infiltrates are consistent with mild pulmonary edema or atypical pneumonia. Prominent mediastinal lymph nodes are likely reactive in this setting. 2. Small bilateral pleural effusions. 3. Benign 19 mm left adrenal adenoma. 4. Mild to moderate centrilobular and paraseptal emphysema. Correlate for pulmonary arterial hyperten juanita. Electronically signed by: Noemí Connolly MD (03/28/2021 11:29 PM) [facility]
[2021-03-29 00:32] VITALS: BP 149/69
[2021-03-29 06:20] VITALS: BP 130/74
[2021-03-29 07:08] LABS: BASO % 0 % (0-3); EOS % 0 % (0-3); HEMATOCRIT 34.1 % (39.0-53.0); LYMPH # 0.5 x10^3/uL (1.0-4.8); LYMPH % 6 % (24-48); MEAN CORPUSCULAR HEMOGLOBIN 28 pg (25-35); MEAN CORPUSCULAR HGB CONC 32 g/dL (31-37); MEAN CORPUSCULAR VOLUME 87 fL (79-100); MONO # 0.1 x10^3/uL (0.0-1.1); MONO % 1 % (0-9); NEUT # 7.3 x10^3uL (1.8-7.7); NEUT % 93 % (31-73); PLATELET COUNT 168 x10^3/uL (140-400); RED BLOOD COUNT 3.94 x10^6/uL (4.30-5.70); RED CELL DISTRIBUTION WIDTH 16.3 % (11.5-14.5); WHITE BLOOD COUNT 7.8 x10^3/uL (4.0-11.0)
[2021-03-29 07:33] LABS: CALCIUM 8.8 mg/dL (8.5-10.1); CREATININE 1.7 mg/dL (0.7-1.3); GFR 38.9; POTASSIUM 4.3 mmol/L (3.5-5.1)
[2021-03-29] MEDS ORDERED: FLU VACC QUAD 21-22 (6MOS+) PF 0.5 ML SYRINGE. VAX IM ONE (09:00)
[2021-03-29] MEDS ORDERED: POTASSIUM CHLORIDE 20 MEQ TABLET.ER. PO SCH (09:45)
[2021-03-29] MEDS ORDERED: FUROSEMIDE 40 MG/4 ML VIAL IVP ONE (09:45)
[2021-03-29 10:33] VITALS: BP 125/65
[2021-03-29] MEDS ORDERED: DEXTROSE 50% 25 GM / 50ML DISP.SYRIN. IV PRN (11:45)
[2021-03-29] MEDS: INSULIN LISPRO 300 UNITS/3 ML VIAL. SQ SCH ×3 (12:14→20:30)
--- NOTE | 2021-03-29 13:57 | PDOC2 ---
CONSULT DOS: DATE: 03/29/21 TIME: 13:50 Reason for Consult: Heart failure, recent TAVR aortic valve at Referring Physician: Dr. Hurley Chief Complaint Shortness of breath Source: Chart review, Patient Problem List Problems Medical Problems: (1) [place] (acute kidney injury) Status: Acute (2) Elevated brain natriuretic peptide (BNP) level Status: Acute (3) Hyponatremia Status: Acute (4) Hypoxia Status: Acute (5) Shortness of breath Status: Acute History of Present Illness The patient is an 80-year-old male who was admitted through the emergency room for several days of increasing shortness of breath. The patient denied chest pain. He was treated overnight and is feeling somewhat better today. His initial EKG showed atrial fibrillation with a rate of 119 but no acute ischemic changes. CT scan of the chest showed interval social infiltrates consistent with mild pulmonary edema or atypical pneumonia. He had small bilateral pleural effusions as well as emphysema. Initial lab included an INR of 2.5 sodium of 129, creatinine of 1.8 and a white count of 15.5. Troponin was less than 0.017 and BNP was elevated at 5526. The patient has a history of a recent TAVR at . He will had been admitted to [facility] then transferred to on 02/22/2021 with a diagnosis of a recent TAVR, COPD exacerbation and chronic kidney disease. Cardiovascular: AFIB, CAD, CHF, HTN, hyperipidemia, aortic stenosis Pulmonary: COPD Renal/: Chronic renal insuff Past Surgical History: Other (TAVR for his aortic valve) Family History: Heart Disease Smoke: Quit ALCOHOL: occassional Current Medications Current Medications Albuterol/ Ipratropium (Duoneb) 3 ml 1X ONCE NEB Last administered on at 22:17; Start 03/28/21 at 22:00; Stop 03/28/21 at 22:01; Status DC Dexamethasone (Decadron) 10 mg 1X ONCE PO Last administered on 03/28/21at 22:07; Start 03/28/21 at 22:00; Stop 03/28/21 at 22:01; Status DC Fentanyl Citrate (Fentanyl 2ml Vial) 50 mcg 1X ONCE IVP ; Start 03/28/21 at 22:30; Stop 03/28/21 at 22:31; Status DC Lactated Ringer's 1,000 ml @ 1,000 mls/hr 1X ONCE IV Last administered on 03/28/21at 22:07; Start 03/28/21 at 22:00; Stop 03/28/21 at 22:59; Status DC Levofloxacin/ Dextrose 150 ml @ 100 mls/hr 1X ONCE IV Last administered on 03/28/21at 22:07; Start 03/28/21 at 21:45; Stop 03/28/21 at 23:18; Status DC Iohexol (Omnipaque 300 Mg/ml) 75 ml 1X ONCE IV ; Start 03/28/21 at 22:30; Stop 03/28/21 at 22:31; Status DC Info (Do NOT chart on this entry -- for MONITORING) 1 each PRN DAILY PRN MC SEE COMMENTS; Start 03/28/21 at 22:00; Stop 03/30/21 at 21:59 Furosemide (Lasix) 40 mg 1X ONCE IVP Last administered on 03/28/21at 23:17; Start 03/28/21 at 23:30; Stop 03/28/21 at 23:31; Status DC Fentanyl Citrate (Fentanyl 2ml Vial) 50 mcg PRN Q1HR PRN IVP SEVERE PAIN 7-10; Start 03/28/21 at 23:15; Stop 03/29/21 at 23:14 Influenza Virus Vaccine Quadrival (Flulaval Quad [id number] Syringe) 0.5 ml ONCE ONCE VAX IM ; Start 03/29/21 at 09:00; Stop 03/29/21 at 08:54; Status DC Influenza Virus Vaccine Quadrival (Flulaval Quad [id number] Syringe) 0.5 ml ONCE ONCE VAX IM ; Start 03/30/21 at 09:00; Stop 03/30/21 at 09:01 Furosemide (Lasix) 40 mg 1X ONCE IVP Last administered on 03/29/21at 10:18; St art 03/29/21 at 09:45; Stop 03/29/21 at 09:46; Status DC Potassium Chloride (Klor-Con) 20 meq BID PO ; Start 03/29/21 at 09:45; Stop 03/29/21 at 10:14; Status DC Insulin Human Lispro (HumaLOG) 0-9 UNITS TIDWMEALS SQ Last administered on 03/29/21at 12:14; Start 03/29/21 at 12:00 Dextrose (Dextrose 50%-Water Syringe) 12.5 gm PRN Q15MIN PRN IV SEE COMMENTS; Start 03/29/21 at 11:45 Active Scripts Active Reported Diltiazem 24Hr ER (Diltiazem HCl) 360 Mg Tab.er.24h 1 Tab PO DAILY 30 Days Vitamin D2 (Ergocalciferol (Vitamin D2)) 1,250 Mcg Capsule 1,250 Mcg PO Q2WKS Warfarin Sodium 5 Mg Tablet 5 Mg PO DAILY16 Triamcinolone Acetonide 80 Gm Oint...g. 1 Rodney TP TID Tresiba Flextouch U-100 (Insulin Degludec) 100 Unit/1 Ml Insuln.pen 10 Unit SQ DAILY Repaglinide 1 Mg Tablet 0.25 Mg PO QEVNG Furosemide 40 Mg Tablet 40 Mg PO DAILY Ocuvite Tablet (Vit A,C & E/Lutein/Minerals) 1 Each Tablet 1 Tab PO DAILY 30 Days Restasis (Cyclosporine) 1 Each Droperette 1 Drop EACHEYE BID Aspirin 81 Mg Tab.chew 81 Mg PO DAILY Atorvastatin Calcium 40 Mg Tablet 40 Mg PO DAILY Anoro Ellipta 62.5-25 Mcg Inh (Umeclidinium Brm/Vilanterol Tr) 1 Each Disk.w.dev 1 Each IH DAILY Amlodipine Besylate 10 Mg Tablet 10 Mg PO HS Allergies: Coded Allergies: No Known Drug Allergies (Unverified , 03/28/21) General: YES: Fatigue Respiratory: YES: Shortness of breath, SOB with excertion General: mild distress HEENT: Atraumatic Lungs: Other (Decreased breath sounds) Heart: Other (Irregularly irregular) Abdomen: Normal bowel sounds VITALS Vital Signs Date Time Temp Pulse Resp B/P (MAP) Pulse Ox O2 Delivery O2 Flow Rate FiO2 03/29/21 10:33 97.1 103 20 125/65 (85) 91 Nasal Cannula 4.0 Labs Laboratory Tests Test 03/28/21 21:30 03/28/21 21:55 03/28/21 22:00 03/28/21 22:05 White Blood Count 15.5 x10^3/uL (4.0-11.0) Red Blood Count 4.07 x10^6/uL (4.30-5.70) Hemoglobin 11.3 g/dL (13.0-17.5) Hematocrit 34.8 % (39.0-53.0) Mean Corpuscular Volume 86 fL (79-100) Mean Corpuscular Hemoglobin 28 pg (25-35) Mean Corpuscular Hemoglobin Concent 33 g/dL (31-37) Red Cell Distribution Width 16.0 % (11.5-14.5) Platelet Count 224 x10^3/uL (140-400) Neutrophils (%) (Auto) 84 % (31-73) Lymphocytes (%) (Auto) 6 % (24-48) Monocytes (%) (Auto) 9 % (0-9) Eosinophils (%) (Auto) 1 % (0-3) Basophils (%) (Auto) 0 % (0-3) Neutrophils # (Auto) 13.0 x10^3uL (1.8-7.7) Lymphocytes # (Auto) 0.9 x10^3/uL (1.0-4.8) Monocytes # (Auto) 1.5 x10^3/uL (0.0-1.1) Eosinophils # (Auto) 0.1 x10^3/uL (0.0-0.7) Basophils # (Auto) 0.1 x10^3/uL (0.0-0.2) Segmented Neutrophils % 84 % (35-66) Band Neutrophils % 3 % (0-9) Lymphocytes % 4 % (24-48) Monocytes % 9 % (0-10) Platelet Estimate Adequate (ADEQUATE) Sodium Level 129 mmol/L (136-145) Potassium Level 4.4 mmol/L (3.5-5.1) Chloride Level 94 mmol/L (98-107) Carbon Dioxide Level 26 mmol/L (21-32) Anion Gap 9 (6-14) Blood Urea Nitrogen 27 mg/dL (8-26) Creatinine 1.8 mg/dL (0.7-1.3) Estimated GFR (Cockcroft-Gault) 36.4 BUN/Creatinine Ratio 15 (6-20) Glucose Level 190 mg/dL (70-99) Calcium Level 8.9 mg/dL (8.5-10.1) Magnesium Level 2.0 mg/dL (1.8-2.4) Total Bilirubin 0.8 mg/dL (0.2-1.0) Aspartate Amino Transf (AST/SGOT) 17 U/L (15-37) Alanine Aminotransferase (ALT/SGPT) 24 U/L (16-63) Alkaline Phosphatase 127 U/L (46-116) Troponin I Quantitative < 0.017 ng/mL (0-0.055) CT-Smj-P-Type Natriuretic Peptide 5526 pg/mL (0-449) Total Protein 7.0 g/dL (6.4-8.2) Albumin 3.6 g/dL (3.4-5.0) Albumin/Globulin Ratio 1.1 (1.0-1.7) Bedside Venous pH 7.51 (7.32-7.42) Bedside Venous pCO2 33 mmHg (41-51) Bedside Venous pO2 25 mmHg (20-40) Venous Blood HCO3 26 mmol/L (24-28) POC Venous O2 Saturation (Andreas) 53 % Bedside FiO2 32 Prothrombin Time 25.2 SEC (9.4-11.4) Prothromb Time International Ratio 2.5 (0.9-1.1) Activated Partial Thromboplast Time 38 SEC (23-33) Urine Collection Type Unknown Urine Color Yellow Urine Clarity Clear Urine pH 6.5 Urine Specific [place] 1.015 Urine Protein Neg (NEG-TRACE) Urine Glucose (UA) Neg mg/dL (NEG) Urine Ketones (Stick) Neg mg/dL (NEG) Urine Blood Neg (NEG) Urine Nitrite Neg (NEG) Urine Bilirubin Neg (NEG) Urine Urobilinogen Dipstick 2.0 mg/dL (0.2 mg/dL) Urine Leukocyte Esterase Neg (NEG) Urine RBC Rare /HPF (0-2) Urine WBC Rare /HPF (0-4) Urine Squamous Epithelial Cells Occ /LPF Urine Bacteria 0 /HPF (0-FEW) Test 03/29/21 06:45 03/29/21 11:28 White Blood Count 7.8 x10^3/uL (4.0-11.0) Red Blood Count 3.94 x10^6/uL (4.30-5.70) Hemoglobin 11.0 g/dL (13.0-17.5) Hematocrit 34.1 % (39.0-53.0) Mean Corpuscular Volume 87 fL (79-100) Mean Corpuscular Hemoglobin 28 pg (25-35) Mean Corpuscular Hemoglobin Concent 32 g/dL (31-37) Red Cell Distribution Width 16.3 % (11.5-14.5) Platelet Count 168 x10^3/uL (140-400) Neutrophils (%) (Auto) 93 % (31-73) Lymphocytes (%) (Auto) 6 % (24-48) Monocytes (%) (Auto) 1 % (0-9) Eosinophils (%) (Auto) 0 % (0-3) Basophils (%) (Auto) 0 % (0-3) Neutrophils # (Auto) 7.3 x10^3uL (1.8-7.7) Lymphocytes # (Auto) 0.5 x10^3/uL (1.0-4.8) Monocytes # (Auto) 0.1 x10^3/uL (0.0-1.1) Eosinophils # (Auto) 0.0 x10^3/uL (0.0-0.7) Basophils # (Auto) 0.0 x10^3/uL (0.0-0.2) Sodium Level 133 mmol/L (136-145) Potassium Level 4.3 mmol/L (3.5-5.1) Chloride Level 96 mmol/L (98-107) Carbon Dioxide Level 28 mmol/L (21-32) Anion Gap 9 (6-14) Blood Urea Nitrogen 29 mg/dL (8-26) Creatinine 1.7 mg/dL (0.7-1.3) Estimated GFR (Cockcroft-Gault) 38.9 Glucose Level 257 mg/dL (70-99) Calcium Level 8.8 mg/dL (8.5-10.1) Glucose (Fingerstick) 365 mg/dL (70-99) Images CT scan of the chest as above. Assessment/Plan 1. Respiratory failure. Patient has a history of a TAVR and had increasing shortness of breath for several days. Additionally has a history of COPD. We will treat heart failure with COPD exacerbation. Will obtain further records from . Echo today if patient is Covid negative on testing. 2. TAVR at earlier this year. He is routinely followed at . We will check an echocardiogram today as noted above. 3. COPD. Continue pulmonary treatments and monitor. 4. Hyperlipidemia. Continue statins. 5. Coronary artery disease. Patient denies chest pain. Initial troponin is normal. We will continue to monitor. 6. Diabetes mellitus. Continue baseline medications. 7. Apparent chronic atrial fibrillation. Patient is anticoagulated with his most recent INR of 2.5 today and would continue on Coumadin. Will adjust rate control medications based on his clinical course. JANE ARMENTA MD Mar 29, 2021 13:57
[2021-03-29 15:52] VITALS: BP 142/78
--- NOTE | 2021-03-29 16:17 | CARD ---
MR#: [id number] Date of Study: 03/29/2021 Ordering Physician: JANE BUITRAGO, Referring Physician: JANE BUITRAGO, Tech: Ever Roper [facility] APPROVED REPORT EXAM: Two-dimensional and M-mode echocardiogram with Doppler and color Doppler. Other Information Quality : FairHR: 104bpm Rhythm : Atrial FibrillationTechnically limited study due to INDICATION Cardiac Disease: CAD Congestive Heart Failure Surgery/Intervention Status/Post Aortic Valve Replacement: Bioprosthetic RISK FACTORS Hypertension Diabetes Smoking 2D DIMENSIONS Left Atrium(2D)4.8 (1.6-4.0cm)IVSd1.2 (0.7-1.1cm) Aortic Root(2D)2.6 (2.0-3.7cm)LVDd4.1 (3.9-5.9cm) LVOT Diameter1.9 (1.8-2.4cm)PWd1.2 (0.7-1.1cm) LVDs3.0 (2.5-4.0cm)FS (%) 27.3 % SV39.6 mlLVEF(%)53.5 (>50%) Aortic Valve AoV Peak Kerwin.202.6cm/sAoV VTI40.5cm AO Peak GR.16.4mmHgLVOT Peak Kerwin.86.7cm/s LVOT VTI 18.81cmAO Mean GR.10mmHg DREW (VMAX)1.44dq3ZGW (VTI)1.31cm2 Mitral Valve MV E Peak Gr.12mmHgMV E Mean Gr.4mmHg Pulmonary Valve PV Peak Hbsjlegt548.4cm/sPV Peak Grad.4mmHg Tricuspid Valve TR P. Mwqlqkwb700gf/sTR Peak Gr.41mmHg LEFT VENTRICLE The left ventricle is normal size. There is mild concentric left ventricular hypertrophy. The left ve ntricular systolic function is normal and the ejection fraction is within normal range. LV ejection f raction of 50 to 55% There is normal LV segmental wall motion. Diastolic function unable to be assess ed due to atrial fibrillation. No left ventricle thrombus noted on this study. There is no ventricula r septal defect visualized. There is no left ventricular aneurysm. There is no mass noted in the left ventricle. RIGHT VENTRICLE The right ventricle is normal size. The right ventricular systolic function is normal. ATRIA The left atrium is mild to moderately dilated. The right atrium is mildly dilated. The interatrial se ptum is intact with no evidence for an atrial septal defect or patent foramen ovale as noted on 2-D o r Doppler imaging. AORTIC VALVE Doppler and Color Flow revealed trace aortic regurgitation. There is no significant aortic valvular s tenosis. There is no aortic valvular vegetation. There are no vegetations on this prosthetic aortic v alve. There is a bioprosthetic aortic valve prosthesis. (TAVR ) The prosthetic aortic valve appears w ell seated. MITRAL VALVE Mitral annular calcification is moderate. There is no evidence of mitral valve prolapse. There is no mitral valve stenosis. Doppler and Color-flow revealed mild mitral regurgitation. TRICUSPID VALVE The tricuspid valve is normal in structure and function. Doppler and Color Flow revealed mild tricusp id regurgitation. There is no tricuspid valve prolapse or vegetation. There is no tricuspid valve luna nosis. PULMONIC VALVE The pulmonary valve is not well seen. Doppler and Color Flow revealed no pulmonic valvular regurgitat ion. There is no pulmonic valvular stenosis. GREAT VESSELS The aortic root is normal in size. The ascending aorta is normal in size. The pulmonary artery is nor mal. The IVC is dilated with blunted inspiratory response. PERICARDIAL EFFUSION There is no evidence of significant pericardial effusion. Critical Notification Critical Value: No <Conclusion> The left ventricle is normal size. The left ventricular systolic function is normal and the ejection fraction is within normal range. LV ejection fraction of 50 to 55% There is mild concentric left ventricular hypertrophy. There is a bioprosthetic aortic valve prosthesis. (TAVR ) The prosthetic aortic valve appears well seated. Doppler and Color Flow revealed trace aortic regurgitation. There is no significant aortic valvular stenosis. Doppler and Color-flow revealed mild mitral regurgitation. Doppler and Color Flow revealed mild tricuspid regurgitation. Signed by : Jane Buitrago MD Electronically Approved : 03/29/2021 16:17:17
--- NOTE | 2021-03-29 18:26 | HP ---
HISTORY OF PRESENT ILLNESS: The patient is an 80-year-old male patient who presented to the Emergency Room of [facility] with a complaint of shortness of breath over the last couple of days, worse than usual. He also complained of cough with sputum. He did complain of chills, but denied any chest pain, orthopnea or paroxysmal nocturnal dyspnea. He was extensively evaluated in the Emergency Room, has had lab work and imaging studies. His white cell count was slightly elevated at 15,500. His blood gases were unremarkable. His prothrombin time and INR are within therapeutic range. Urinalysis essentially unremarkable and he was swabbed for coronavirus by PCR, at the time of admission was still pending. He has had also a chest x-ray, which showed that the patient has interstitial infiltrates that are consistent with mild pulmonary edema and/or atypical pneumonia as dominant mediastinal lymph nodes that are likely reactive in this setting. He has small bilateral pleural effusion, benign, 19 mm left adrenal adenoma, mild to moderate centrilobular and paraseptal emphysema. The patient was admitted with a diagnosis of acute on chronic hypoxic respiratory failure, congestive heart failure, and hyponatremia. His serum sodium was 129. He was treated with IV furosemide, was given dexamethasone and levofloxacin as well as DuoNeb, and was admitted for further evaluation and treatment. PAST MEDICAL HISTORY: Significant for atrial fibrillation, coronary artery disease status post CABG, congestive heart failure, hypertension, hyperlipidemia, aortic stenosis as well as chronic obstructive pulmonary disease and chronic renal insufficiency. PAST SURGICAL HISTORY: Significant for coronary artery bypass graft surgery and transcatheter aortic valve replacement for severe aortic valve stenosis. He has also right carotid endarterectomy. FAMILY HISTORY: Positive for heart disease. SOCIAL HISTORY: He is . Quit smoking about 30 years ago. He has 1 daughter and 3 sons. One of his sons in a motor vehicle accident. He drinks 2 beers a night for the last 60-70 years. He worked at an [employer]. ALLERGIES: He currently has no known drug allergies. MEDICATIONS: He is currently on the following medications: He is on Anoro Ellipta one inhalation once a day, Coumadin 5 mg once a day, atorvastatin 40 mg daily, amlodipine besylate 10 mg once a day, diltiazem 360 mg extended release once a day, aspirin 81 mg once a day, furosemide 40 mg daily, cyclosporine or Restasis 1 drop to both eyes twice a day. He is on Tresiba FlexTouch 10 units subcutaneously daily. He is on repaglinide 1 tablet 0.25 mg every evening. He is on triamcinolone acetonide cream applied topically once a day for rash. He is on ergocalciferol or vitamin D2 1250 mcg capsule once every 2 weeks. He is on multivitamins or Ocuvite one tablet once a day. REVIEW OF SYSTEMS: As per history of present illness. PHYSICAL EXAMINATION: GENERAL: On arrival to the Emergency Room, the patient was clearly tachypneic, tachycardic. He was somewhat pale, but no jaundice or cyanosis, no lymphadenopathy, no thyromegaly, no jugular venous distention, but mild bilateral lower limb edema. VITAL SIGNS: His heart rate on admission was 142, blood pressure 147/66, temperature was 98.8, respiratory rate was 30 and oxygen saturation was 94% on 2 liters of oxygen. HEAD, EYES, EARS, NOSE, AND THROAT: Showed he is normocephalic, atraumatic. NECK: Supple. HEART: Normal first and second heart sounds, no gallop, rub or murmur. CHEST: Clear to auscultation, no crepitation or rhonchi. ABDOMEN: Distended, soft, nontender. NEUROLOGIC: He was hard of hearing, but otherwise all his cranial nerves are intact. He moves extremities without difficulty. He ambulates without assistance or assistive devices. LABORATORY DATA: On arrival showed a white cell count of 15,500, hemoglobin 11, hematocrit 34, MCV 86 and platelet count 224,000 with manual differential showed 84% polymorphs, 6% lymphocytes and 9% monocytes. Serum sodium is 129, potassium 4.4, chloride 94, bicarbonate 26, anion gap of 9, BUN 27, creatinine 1.8. Estimated GFR was 36 mL per minute. His glucose 190, calcium was 8.9, magnesium 2. Total bilirubin, AST, ALT were normal. Alkaline phosphatase slightly elevated. His first set of cardiac enzymes showed troponin to be less than 0.017. Beta-natriuretic peptide was 5526. Total protein 7, albumin 3.6. His prothrombin time was 25.2, INR of 2.5, APTT was 38. Urinalysis showed the urine was yellow, clear with a pH of 6.5, specific gravity of 1.015. The urine was essentially negative and unremarkable. He was swabbed for coronavirus, results are still pending. His chest CT without contrast showed the patient has interstitial infiltrates that are consistent with mild pulmonary edema or atypical pneumonia. He has also prominent mediastinal lymph nodes that are likely reactive, and in this setting, he has small bilateral pleural effusion, benign, 19 mm left adrenal adenoma and mild to moderate centrilobular and paraseptal emphysema. ASSESSMENT AND PLAN: The patient was treated with probably acute on chronic diastolic congestive heart failure as well as community-acquired pneumonia. He was treated with IV Lasix as well as dexamethasone, levofloxacin as well as bronchodilators. My plan is obviously to reconcile all his medication and continue with IV antibiotic, and await the result of the COVID-19. I have also consulted the Cardiology team for evaluation and treatment. MAURO/DI/FAITH DR: Aye TID: [id number]
[2021-03-29] MEDS: WARFARIN 5 MG TABLET. PO SCH (18:33)
[2021-03-29] MEDS: REPAGLINIDE 1 MG TABLET PO SCH (18:34)
[2021-03-29 19:47] VITALS: BP 152/79
[2021-03-29] MEDS: cycloSPORINE 0.05% OPTH 1 DROP DROPERETTE OU SCH (20:24)
[2021-03-29] MEDS: TRIAMCINOLONE ACETONIDE 0.1% TOPICAL OINTMENT 15GM TUBE. TP SCH (20:24)
[2021-03-29] MEDS: BUDESONIDE 0.5 MG/2 ML NEBU NEB SCH (20:47)
[2021-03-29] MEDS: ALBUTEROL SULFATE 2.5 MG/3 ML NEBU. NEB SCH (20:47)
[2021-03-29] MEDS ORDERED: amLODIPine BESYLATE 10 MG TABLET PO SCH (21:00)
[2021-03-29 23:54] VITALS: BP 125/60
--- NOTE | 2021-03-30 01:58 | PN ---
DATE: 03/29/2021 SUBJECTIVE: The patient is resting slightly propped up in bed, in no apparent respiratory distress. He is awake, alert, continued to have a complaint of shortness of breath and cough. Denied any chills, rigors or fever. PHYSICAL EXAMINATION: GENERAL: When I examined him, he looked somewhat pale, but no jaundice, cyanosis or thyromegaly. No jugular venous distention, but mild bilateral limb edema. VITAL SIGNS: His heart rate was 117, blood pressure is 142/78, temperature was 98.4, respiratory rate was 20 and his oxygen saturation was 94% on 4 liters of oxygen. HEAD, EYES, EARS, NOSE AND THROAT: Normocephalic, atraumatic. NECK: Supple. HEART: Showed normal first and second heart sounds. No gallop, rub or murmur. CHEST: Clear to auscultation. No crepitation, no rhonchi. ABDOMEN: Scaphoid, soft, nontender. NEUROLOGIC: He was hard of hearing, but otherwise all his cranial nerves are intact. He moves extremities without difficulty. His intake was 1150 and output was 350. LABORATORY DATA: His lab work this morning showed a white cell count came down to 7800, hemoglobin 11, hematocrit 34, MCV 87, and a platelet count of 168,000. His chemistry showed a serum sodium 133, potassium 4.3, chloride 96, bicarbonate 28, anion gap of 9, BUN 29, creatinine 1.7. Estimated GFR was 39 mL per minute. His glucose 157, calcium was 8.8. ASSESSMENT: In summary, this is an 80-year-old male patient who was admitted with increasing shortness of breath, cough with whitish sputum. He was diagnosed with mild pulmonary edema versus atypical pneumonia. Other medical problems include: 1. Acute on chronic hypoxic respiratory failure likely due to acute heart failure on top of chronic obstructive pulmonary disease and possible pneumonia. 2. Severe aortic stenosis, status post transcatheter aortic valve replacement. 3. Chronic obstructive pulmonary disease. The patient has been a smoker for 50 years. 4. Hyperlipidemia. 5. Coronary artery disease status post coronary artery bypass graft surgery. 6. Type 2 diabetes mellitus. 7. Chronic atrial fibrillation which is fully anticoagulated. His INR was 2.5. PLAN: My plan is to continue with all his medication. I will continue with IV Lasix and also continue with IV Levaquin for pneumonia. We will also consult physical and occupational therapy tomorrow. MALICK DR: Aye TID: [id number]
[2021-03-30] MEDS: ALBUTEROL SULFATE 2.5 MG/3 ML NEBU. NEB SCH ×4 (05:28→20:03)
--- NOTE | 2021-03-30 05:28 | NUR ---
pt said to let him sleep if he is asleep when I come by in AM. hE WAS ASLEEP.
[2021-03-30 05:54] VITALS: BP 134/68
[2021-03-30 07:37] LABS: BASO % 0 % (0-3); EOS % 0 % (0-3); HEMATOCRIT 30.7 % (39.0-53.0); LYMPH # 0.6 x10^3/uL (1.0-4.8); LYMPH % 6 % (24-48); MEAN CORPUSCULAR HEMOGLOBIN 28 pg (25-35); MEAN CORPUSCULAR HGB CONC 33 g/dL (31-37); MEAN CORPUSCULAR VOLUME 86 fL (79-100); MONO # 0.6 x10^3/uL (0.0-1.1); MONO % 6 % (0-9); NEUT # 9.7 x10^3uL (1.8-7.7); NEUT % 89 % (31-73); PLATELET COUNT 181 x10^3/uL (140-400); RED BLOOD COUNT 3.59 x10^6/uL (4.30-5.70); RED CELL DISTRIBUTION WIDTH 15.6 % (11.5-14.5); WHITE BLOOD COUNT 10.9 x10^3/uL (4.0-11.0)
[2021-03-30 07:45] LABS: ALBUMIN 2.8 g/dL (3.4-5.0); ALBUMIN/GLOBULIN RATIO 0.8 (1.0-1.7); CALCIUM 8.9 mg/dL (8.5-10.1); CREATININE 1.8 mg/dL (0.7-1.3); GFR 36.4; POTASSIUM 4.2 mmol/L (3.5-5.1); TOTAL BILIRUBIN 0.4 mg/dL (0.2-1.0); TOTAL PROTEIN 6.1 g/dL (6.4-8.2)
[2021-03-30] MEDS: MULTIVITAMIN I-VITE TABLET. PO SCH (08:27)
[2021-03-30] MEDS: FUROSEMIDE 40 MG/4 ML VIAL IVP SCH (08:27)
[2021-03-30] MEDS: cycloSPORINE 0.05% OPTH 1 DROP DROPERETTE OU SCH ×2 (08:29→19:52)
[2021-03-30 08:30] VITALS: BP 137/66
[2021-03-30] MEDS: ATORVASTATIN CALCIUM 20 MG TABLET PO SCH (08:30)
[2021-03-30] MEDS: FUROSEMIDE 40 MG TABLET PO SCH ×2 (08:30→09:00)
[2021-03-30] MEDS: ASPIRIN CHEWABLE 81 MG TABLET. PO SCH (08:30)
[2021-03-30] MEDS: TRIAMCINOLONE ACETONIDE 0.1% TOPICAL OINTMENT 15GM TUBE. TP SCH ×3 (08:31→19:51)
[2021-03-30] MEDS: INSULIN GLARGINE SYRINGE. SQ SCH (08:56)
[2021-03-30] MEDS ORDERED: NON FORMULARY ITEM (Umeclidinium Brm/Vilanterol Tr (Anoro Ellipta 62.5-25 Mcg Inh) 1 EACH) IH SCH (09:00)
[2021-03-30] MEDS ORDERED: FLU VACC QUAD 21-22 (6MOS+) PF 0.5 ML SYRINGE. VAX IM ONE (09:00)
[2021-03-30] MEDS: BUDESONIDE 0.5 MG/2 ML NEBU NEB SCH ×2 (10:38→20:03)
[2021-03-30 11:20] VITALS: BP 150/57
[2021-03-30] MEDS: INSULIN LISPRO 300 UNITS/3 ML VIAL. SQ SCH ×2 (12:46→17:50)
--- NOTE | 2021-03-30 14:16 | PDOC ---
DATE OF SERVICE: DOS: DATE: 03/30/21 TIME: 14:13 Patient seen and examined OBJECTIVE: Problems: Problems Medical Problems: (1) WESTON (acute kidney injury) Status: Acute (2) Elevated brain natriuretic peptide (BNP) level Status: Acute (3) Hyponatremia Status: Acute (4) Hypoxia Status: Acute (5) Shortness of breath Status: Acute Vital Signs/I&O: Vital Signs Date Time Temp Pulse Resp B/P (MAP) Pulse Ox O2 Delivery O2 Flow Rate FiO2 03/30/21 11:20 97.7 109 22 150/57 (88) 92 Nasal Cannula 5.0 I & O 03/29/21 03/29/21 03/30/21 15:00 23:00 07:00 Intake Total 240 ml 580 ml 50 ml Output Total 500 ml 600 ml 350 ml Balance -260 ml -20 ml -300 ml Labs: Laboratory Tests Test 03/29/21 16:57 03/29/21 20:18 03/30/21 06:30 03/30/21 07:50 Glucose (Fingerstick) 193 mg/dL (70-99) H 305 mg/dL (70-99) H 232 mg/dL (70-99) H White Blood Count 10.9 x10^3/uL (4.0-11.0) Red Blood Count 3.59 x10^6/uL (4.30-5.70) L Hemoglobin 10.0 g/dL (13.0-17.5) L Hematocrit 30.7 % (39.0-53.0) L Mean Corpuscular Volume 86 fL (79-100) Mean Corpuscular Hemoglobin 28 pg (25-35) Mean Corpuscular Hemoglobin Concent 33 g/dL (31-37) Red Cell Distribution Width 15.6 % (11.5-14.5) H Platelet Count 181 x10^3/uL (140-400) Neutrophils (%) (Auto) 89 % (31-73) H Lymphocytes (%) (Auto) 6 % (24-48) L Monocytes (%) (Auto) 6 % (0-9) Eosinophils (%) (Auto) 0 % (0-3) Basophils (%) (Auto) 0 % (0-3) Neutrophils # (Auto) 9.7 x10^3uL (1.8-7.7) H Lymphocytes # (Auto) 0.6 x10^3/uL (1.0-4.8) L Monocytes # (Auto) 0.6 x10^3/uL (0.0-1.1) Eosinophils # (Auto) 0.0 x10^3/uL (0.0-0.7) Basophils # (Auto) 0.0 x10^3/uL (0.0-0.2) Prothrombin Time 24.7 SEC (9.4-11.4) H Prothrombin Time INR 2.5 (0.9-1.1) H Sodium Level 135 mmol/L (136-145) L Potassium Level 4.2 mmol/L (3.5-5.1) Chloride Level 100 mmol/L (98-107) Carbon Dioxide Level 29 mmol/L (21-32) Anion Gap 6 (6-14) Blood Urea Nitrogen 44 mg/dL (8-26) #H Creatinine 1.8 mg/dL (0.7-1.3) H Estimated GFR (Cockcroft-Gault) 36.4 BUN/Creatinine Ratio 24 (6-20) H Glucose Level 251 mg/dL (70-99) H Calcium Level 8.9 mg/dL (8.5-10.1) Total Bilirubin 0.4 mg/dL (0.2-1.0) Aspartate Amino Transferase (AST) 20 U/L (15-37) Alanine Aminotransferase (ALT) 24 U/L (16-63) Alkaline Phosphatase 88 U/L (46-116) Total Protein 6.1 g/dL (6.4-8.2) L Albumin 2.8 g/dL (3.4-5.0) L Albumin/Globulin Ratio 0.8 (1.0-1.7) L Test 03/30/21 12:08 Glucose (Fingerstick) 207 mg/dL (70-99) H Physical Exam: Chest. Mildly decreased breath sounds. CV. Irregularly irregular with 1/6 systolic murmur. Abdomen. Soft. ASSESSMENT: 1. Respiratory failure. Patient has a history of a TAVR and had increasing shortness of breath for several days. Additionally has a history of COPD. Echocardiogram shows normal functioning of his TAVR and an ejection fraction of 50 to 55%. We will continue treatment for heart failure and COPD exacerbation. The patient is feeling better today. 2. TAVR at earlier this year. He is routinely followed at . Echo as above. 3. COPD. Continue pulmonary treatments and monitor. 4. Hyperlipidemia. Continue statins. 5. Coronary artery disease. Patient denies chest pain. Initial troponin is normal. We will continue to monitor. 6. Diabetes mellitus. Continue baseline medications. 7. Apparent chronic atrial fibrillation. Patient is anticoagulated with his most recent INR of 2.5 today and would continue on Coumadin. We will continue present medical treatment. Justification of Admission: Justification of Admission: Justification of Admission Dx: Yes JANE ARMENTA MD Mar 30, 2021 14:16
[2021-03-30 15:49] VITALS: BP 153/63
[2021-03-30] MEDS: WARFARIN 5 MG TABLET. PO SCH (17:46)
[2021-03-30] MEDS: REPAGLINIDE 1 MG TABLET PO SCH (18:25)
[2021-03-30] MEDS ORDERED: INSULIN LISPRO 300 UNITS/3 ML VIAL. SQ ONE (18:30)
--- NOTE | 2021-03-30 18:36 | NUR ---
PT GIVEN 5 UNITS HUMALOG AT BREAKFAST AT APPROX 0800 FOR BS OF 232. UNABLE TO ADD ONE TIME ORDER IT WAS TIMED WRONG. TRIED TO CALL PHARMACY TO FIX THE TIME I SCHEDULED ADMINISTRATION FOR 1 TIME THIS AM AND TIME WOULD NOT CHANGE.
[2021-03-30] MEDS: LACTOBACILLUS RHAMNOSUS GG 1 CAPSULE. PO SCH (19:52)
[2021-03-30 20:19] VITALS: BP 151/76
--- NOTE | 2021-03-30 23:09 | PN ---
DATE: 03/30/2021 SUBJECTIVE: The patient is resting, slightly propped up in bed, in no apparent distress. On questioning him, he stated he continued to have some cough, mild shortness of breath and generally feeling much better. PHYSICAL EXAMINATION: GENERAL: When I examined him, he looked pale, but no jaundice, cyanosis or thyromegaly. No jugular venous distention, but mild bilateral lower limb edema. VITAL SIGNS: His heart rate was 109, blood pressure is 150/57, temperature was 97.7, respiratory rate was 22 and oxygen saturation was 92% on 5 liters of oxygen. HEAD, EYES, EARS, NOSE, AND THROAT: Normocephalic, atraumatic. NECK: Supple. HEART: Normal first and second heart sounds. No gallop, rub or murmur. CHEST: Shows central trachea, equal bilateral chest expansion, air entry, vesicular breath sounds. He has bilateral basal crepitation. I could not appreciate any rhonchi. ABDOMEN: Slightly soft, nontender. NEUROLOGIC: He is very hard of hearing, but otherwise all cranial nerves intact. He moves extremities without difficulty. His intake over the last 24 hours was 1150, output was 350. LABORATORY DATA: As of this morning, his serum sodium was 135, potassium 4.2, chloride 100, bicarbonate 29, anion gap of 6, BUN 44, creatinine 1.8. Estimated GFR was 36 mL per minute. His glucose 251, calcium was 8.9. Total bilirubin, AST, ALT, alkaline phosphatase were normal. Total protein 6.1, albumin was 2.8. His coronavirus by PCR was negative. Urinalysis essentially unremarkable. ASSESSMENT: 1. Worsening shortness of breath, cough with whitish sputum. The patient was diagnosed with acute on chronic hypoxic respiratory failure secondary to pulmonary edema versus atypical pneumonia. 2. Other medical problems include: A. Acute on chronic hypoxic respiratory failure likely due to heart failure on top of chronic obstructive pulmonary disease and possible pneumonia. B. Severe aortic stenosis, status post transcatheter aortic valve replacement. C. Chronic obstructive pulmonary disease. The patient has been a smoker for over 30 years. He quit smoking 30 years ago. D. Hyperlipidemia. E. Coronary artery disease, status post coronary artery bypass graft surgery. 3. Type 2 diabetes mellitus. 4. Chronic atrial fibrillation, which is fully anticoagulated. His INR was 2.5. PLAN: To continue with IV antibiotic. Continue with IV Lasix. I discontinued his amlodipine as he is on 2 calcium channel blockers. MAURO/SHAYAN/MARY BETH DR: Aye TID: [id number]
[2021-03-30 23:32] VITALS: BP 131/70
[2021-03-31] MEDS: ALBUTEROL SULFATE 2.5 MG/3 ML NEBU. NEB SCH ×4 (05:08→20:19)
--- NOTE | 2021-03-31 05:08 | NUR ---
pt said to not awaken if he was asleep at 5AM. He was sound asleep at 508 am
[2021-03-31 06:08] VITALS: BP 135/83
[2021-03-31 07:40] LABS: CALCIUM 8.8 mg/dL (8.5-10.1); CREATININE 1.7 mg/dL (0.7-1.3); GFR 38.9; POTASSIUM 3.9 mmol/L (3.5-5.1)
[2021-03-31] MEDS: INSULIN LISPRO 300 UNITS/3 ML VIAL. SQ SCH ×3 (08:00→18:10)
[2021-03-31] MEDS: ATORVASTATIN CALCIUM 20 MG TABLET PO SCH (08:58)
[2021-03-31] MEDS: FUROSEMIDE 40 MG/4 ML VIAL IVP SCH ×2 (08:58→11:57)
[2021-03-31] MEDS: LACTOBACILLUS RHAMNOSUS GG 1 CAPSULE. PO SCH ×2 (09:01→19:37)
[2021-03-31] MEDS: ASPIRIN CHEWABLE 81 MG TABLET. PO SCH (09:01)
[2021-03-31] MEDS: MULTIVITAMIN I-VITE TABLET. PO SCH (09:01)
[2021-03-31] MEDS: TRIAMCINOLONE ACETONIDE 0.1% TOPICAL OINTMENT 15GM TUBE. TP SCH ×3 (09:01→19:37)
[2021-03-31] MEDS: cycloSPORINE 0.05% OPTH 1 DROP DROPERETTE OU SCH ×2 (09:02→19:37)
[2021-03-31] MEDS: INSULIN GLARGINE SYRINGE. SQ SCH (09:20)
--- NOTE | 2021-03-31 09:36 | NUR ---
Pharmacy Warfarin Dosing Note S:Pharmacy consulted to assist with anticoagulation therapy started with target INR: 2 -3 O:SENGGabeDEMETRA Purcell is a 80 year old M with Atrial Fibrillation LABS: Last INR: 3.6 Last HGB: 10 Last HCT: 30.7 Last PLT: 181 Last dose of 5 mg given on 03/30/21 at 1746 Previous Regimen: 5MG DAILY Vitamin K given: Drug Interaction Changes: New Interacting Drug Ongoing Drug Interactions: LEVAQUIN A:INR Above desired Range. Target Range for this patient is: 2 -3 P: Warfarin dose: Hold Today at 1600 Bridge Therapy: None Next INR due 9/27 AM Pharmacy anticoagulation service will continue to follow. TOAN WILCOX, 03/31/21 0936
[2021-03-31] MEDS: BUDESONIDE 0.5 MG/2 ML NEBU NEB SCH ×2 (10:20→20:19)
[2021-03-31 11:08] VITALS: BP 135/60
--- NOTE | 2021-03-31 11:35 | PDOC ---
DATE OF SERVICE: DOS: DATE: 03/31/21 TIME: 11:33 SUBJECTIVE: Patient seen and examined OBJECTIVE: Problems: Problems Medical Problems: (1) WESTON (acute kidney injury) Status: Acute (2) Elevated brain natriuretic peptide (BNP) level Status: Acute (3) Hyponatremia Status: Acute (4) Hypoxia Status: Acute (5) Shortness of breath Status: Acute Vital Signs/I&O: Vital Signs Date Time Temp Pulse Resp B/P (MAP) Pulse Ox O2 Delivery O2 Flow Rate FiO2 03/31/21 11:08 98.1 98 24 135/60 (85) 95 Nasal Cannula 4.5 I & O 03/30/21 03/30/21 03/31/21 15:00 23:00 07:00 Intake Total 520 ml 680 ml 100 ml Output Total 600 ml 500 ml Balance -80 ml 180 ml 100 ml Labs: Laboratory Tests Test 03/30/21 12:08 03/30/21 16:50 03/30/21 20:05 03/31/21 06:40 Glucose (Fingerstick) 207 mg/dL (70-99) H 259 mg/dL (70-99) H 234 mg/dL (70-99) H Prothrombin Time 35.4 SEC (9.4-11.4) H Prothrombin Time INR 3.6 (0.9-1.1) H Sodium Level 138 mmol/L (136-145) Potassium Level 3.9 mmol/L (3.5-5.1) Chloride Level 102 mmol/L (98-107) Carbon Dioxide Level 30 mmol/L (21-32) Anion Gap 6 (6-14) Blood Urea Nitrogen 49 mg/dL (8-26) H Creatinine 1.7 mg/dL (0.7-1.3) H Estimated GFR (Cockcroft-Gault) 38.9 Glucose Level 165 mg/dL (70-99) H Calcium Level 8.8 mg/dL (8.5-10.1) [id number]-Type Natriuretic Peptide 6329 pg/mL (0-449) H Test 03/31/21 07:29 03/31/21 11:25 Glucose (Fingerstick) 144 mg/dL (70-99) H 216 mg/dL (70-99) H Physical Exam: Chest. Mildly decreased breath sounds. CV. Irregularly irregular. Abdomen. Soft. ASSESSMENT: 1. Respiratory failure. Patient has a history of a TAVR and COPD. Echocardiogram shows normal functioning of his TAVR and an ejection fraction of 50 to 55%. He looks and feels significantly better today. We will continue on present treatment. Of note creatinine is stable at 1.7. 2. TAVR at earlier this year. He is routinely followed at . Echo as above. 3. COPD. Feeling better. Continue pulmonary treatments and monitor. 4. Hyperlipidemia. Continue statins. 5. Coronary artery disease. Patient denies chest pain. Initial troponin is normal. We will continue to monitor. 6. Diabetes mellitus. Continue baseline medications. 7. Chronic atrial fibrillation. Patient is anticoagulated with his most recent INR of 2.5 today and would continue on Coumadin. Justification of Admission: Justification of Admission: Justification of Admission Dx: Yes JANE ARMENTA MD Mar 31, 2021 11:35
[2021-03-31 15:29] VITALS: BP 154/74
[2021-03-31] MEDS: REPAGLINIDE 1 MG TABLET PO SCH (18:12)
[2021-03-31 20:03] VITALS: BP 136/64
[2021-04-01] MEDS: ALBUTEROL SULFATE 2.5 MG/3 ML NEBU. NEB SCH ×2 (05:36→11:44)
--- NOTE | 2021-04-01 05:37 | NUR ---
pT WAS ASLEEP, HE SAID TO NOT WAKE UP IF ASLEEP AT 5 AM
[2021-04-01 06:20] VITALS: BP 152/75
[2021-04-01 07:13] LABS: CALCIUM 8.4 mg/dL (8.5-10.1); CREATININE 1.3 mg/dL (0.7-1.3); POTASSIUM 3.8 mmol/L (3.5-5.1)
[2021-04-01] MEDS: BUDESONIDE 0.5 MG/2 ML NEBU NEB SCH (08:00)
[2021-04-01] MEDS: INSULIN LISPRO 300 UNITS/3 ML VIAL. SQ SCH (08:00)
[2021-04-01] MEDS: MULTIVITAMIN I-VITE TABLET. PO SCH (08:14)
[2021-04-01] MEDS: ATORVASTATIN CALCIUM 20 MG TABLET PO SCH (08:15)
[2021-04-01] MEDS: ASPIRIN CHEWABLE 81 MG TABLET. PO SCH (08:15)
[2021-04-01] MEDS: LACTOBACILLUS RHAMNOSUS GG 1 CAPSULE. PO SCH (08:15)
[2021-04-01] MEDS: FUROSEMIDE 40 MG/4 ML VIAL IVP SCH (08:16)
--- NOTE | 2021-04-01 08:29 | PDOC ---
CARDIO Progress Notes Date & Time Date of Service DATE: 04/01/21 TIME: 08:23 Time of Evaluation 08:23 Subjective Notes No chest pain, shortness of breath. Vitals Vitals Vital Signs Date Time Temp Pulse Resp B/P (MAP) Pulse Ox O2 Delivery O2 Flow Rate FiO2 04/01/21 08:15 103 152/75 04/01/21 06:20 97.3 18 96 Nasal Cannula 4.5 Weight Weight [ ] Input and Output I.O. Intake and Output 04/01/21 07:00 Intake Total 1140 ml Output Total 1700 ml Balance -560 ml Intake Oral 1140 ml Output Urine Total 1700 ml # Voids 2 Laboratory Labs Laboratory Tests Test 03/30/21 12:08 03/30/21 16:50 03/30/21 20:05 03/31/21 06:40 Glucose (Fingerstick) 207 mg/dL (70-99) 259 mg/dL (70-99) 234 mg/dL (70-99) Prothrombin Time 35.4 SEC (9.4-11.4) Prothromb Time International Ratio 3.6 (0.9-1.1) Sodium Level 138 mmol/L (136-145) Potassium Level 3.9 mmol/L (3.5-5.1) Chloride Level 102 mmol/L (98-107) Carbon Dioxide Level 30 mmol/L (21-32) Anion Gap 6 (6-14) Blood Urea Nitrogen 49 mg/dL (8-26) Creatinine 1.7 mg/dL (0.7-1.3) Estimated GFR (Cockcroft-Gault) 38.9 Glucose Level 165 mg/dL (70-99) Calcium Level 8.8 mg/dL (8.5-10.1) JT-[id number]-B-Type Natriuretic Peptide 6329 pg/mL (0-449) Test 03/31/21 07:29 03/31/21 11:25 03/31/21 16:28 03/31/21 20:35 Glucose (Fingerstick) 144 mg/dL (70-99) 216 mg/dL (70-99) 218 mg/dL (70-99) 167 mg/dL (70-99) Test 04/01/21 06:30 04/01/21 07:40 Prothrombin Time 33.5 SEC (9.4-11.4) Prothromb Time International Ratio 3.4 (0.9-1.1) Sodium Level 140 mmol/L (136-145) Potassium Level 3.8 mmol/L (3.5-5.1) Chloride Level 104 mmol/L (98-107) Carbon Dioxide Level 29 mmol/L (21-32) Anion Gap 7 (6-14) Blood Urea Nitrogen 36 mg/dL (8-26) Creatinine 1.3 mg/dL (0.7-1.3) Estimated GFR (Cockcroft-Gault) 53.0 Glucose Level 114 mg/dL (70-99) Calcium Level 8.4 mg/dL (8.5-10.1) Glucose (Fingerstick) 123 mg/dL (70-99) Microbiology Micro Microbiology 03/28/21 Blood Culture - Preliminary, Resulted NO GROWTH AFTER 3 DAYS... Physical Exams HEENT: Neck Supple W Full Motion Chest: Symmetric Lungs: Clear to Auscultation Heart: irregularly irregular Abdomen: Soft N/T Extremities: No Edema Neurology: alert, oriented, follow commands Assessment Assessment 1. Acute on chronic hypoxic respiratory failure wtih CHF, COPD, and ? PNA 2. Acute on chronic diastolic CHF; improved s/p IV diuresis 3. Severe aortic stenosis; s/p TAVR earlier this year at . Echocardiogram shows normal functioning of his TAVR and an ejection fraction of 50 to 55%. 4. CAD; s/p CABG. Secondary prevention 5. Chronic AFIB; chronic OAC with warfarin. INR 3.4. HR slightly elevated. On Cardizem for rate control. Discontinue amlodipine as patient is on Cardizem 6. Hyperlipidemia; controlled 7. Diabetes, II 8. WESTON; improved CONCHIS LEDEZMA APRN Apr 01, 2021 08:29
[2021-04-01] MEDS: cycloSPORINE 0.05% OPTH 1 DROP DROPERETTE OU SCH (08:46)
[2021-04-01] MEDS: TRIAMCINOLONE ACETONIDE 0.1% TOPICAL OINTMENT 15GM TUBE. TP SCH (09:53)
[2021-04-01] MEDS: INSULIN GLARGINE SYRINGE. SQ SCH (10:15)
[2021-04-01 10:33] VITALS: BP 128/81
[2021-04-01] MEDS ORDERED: FURO-68 PO (11:29)
[2021-04-01] MEDS ORDERED: LEVO750T5 PO (11:33)
--- NOTE | 2021-04-01 11:42 | DISCH ---
HOME HEALTH DISCHARGE/MEDS DISCHARGE INFORMATION: Discharge Date: Apr 01, 2021 Final Diagnosis: Problems Medical Problems: (1) WESTON (acute kidney injury) Status: Acute (2) Elevated brain natriuretic peptide (BNP) level Status: Acute (3) Hyponatremia Status: Acute (4) Hypoxia Status: Acute (5) Shortness of breath Status: Acute Condition on Discharge: Stable CODE STATUS: Code Status: Other HOME HEALTH: Face to Face: I certify this patient is under my care and that I, or a nurse practitioner or physician's licensed physical therapy assistant working with me, had a face to face encounter that meets the physician face to face encounter requirements with this patient on [Date 04/01/2021 Longterm For: Medication Management Physical Therapy For: Evalulation/Treatment Occupational Therapy For: Evaluation/Treatment POST DISCHARGE ORDERS: Activity Instructions for Disc: Activity as tolerated DIET AFTER DISCHARGE: Cardiac CHECKS AFTER DISCHARGE: Comment: check PT/INR CERTIFICATION STATEMENT: Certification Statement: Based on the above finding, I certify that this patient is confined to the home and needs intermittent fci care, physical therapy and/or speech therapy, or continues to need occupational therapy.~ This patient is under my care, and I have initiated the establishment of the plan of care.~ This patient will be followed by myself or a community physician who will periodically review the plan of care. DISCHARGE MEDICATIONS: Home Meds Active Scripts Levofloxacin (LEVOFLOXACIN) 750 Mg Tablet, 1 TAB PO q48h] for pneumonia for 4 Days, #4 TAB Prov:CJ HAZEL MD 04/01/21 Furosemide (LASIX) 40 Mg Tablet, 1 TAB PO DAILY for chf for 30 Days, #5 TAB 5 Refills Prov:CJ HAZEL MD 04/01/21 Reported Medications Diltiazem HCl (Diltiazem 24Hr ER) 360 Mg Tab.er.24h, 1 TAB PO DAILY for . for 30 Days, #30 TAB 0 Refills 02/20/21 Ergocalciferol (Vitamin D2) (Vitamin D2) 1,250 Mcg Capsule, 1250 MCG PO Q2WKS for SUPPLEMENT, CAP 01/08/21 Warfarin Sodium (WARFARIN SODIUM) 5 Mg Tablet, 5 MG PO DAILY16 for AFIB, TAB 01/08/21 Triamcinolone Acetonide (TRIAMCINOLONE ACETONIDE) 80 Gm Oint...g., 1 JOHN TP TID for RASH, #30 GM 1 Refill 01/08/21 Insulin Degludec (Tresiba Flextouch U-100) 100 Unit/1 Ml Insuln.pen, 10 UNIT SQ DAILY for ANTI-DIABETIC, EACH 01/08/21 Repaglinide (REPAGLINIDE) 1 Mg Tablet, 0.25 MG PO QEVNG for ANTI-DIABETIC, TAB 01/08/21 Vit A,C & E/Lutein/Minerals (OCUVITE TABLET) 1 Each Tablet, 1 TAB PO DAILY for EYE HEALTH for 30 Days, #30 TAB 0 Refills 01/08/21 Cyclosporine (RESTASIS) 1 Each Droperette, 1 DROP EACHEYE BID for DRY EYE, #180 VIAL 3 Refills 01/08/21 Aspirin (ASPIRIN) 81 Mg Tab.chew, 81 MG PO DAILY for HEART HEALTH, TAB 01/08/21 Atorvastatin Calcium (ATORVASTATIN CALCIUM) 40 Mg Tablet, 40 MG PO DAILY for FOR CHOLESTEROL, #30 TAB 0 Refills 01/08/21 Umeclidinium Brm/Vilanterol Tr (ANORO ELLIPTA 62.5-25 MCG INH) 1 Each Disk.w.dev, 1 EACH IH DAILY for COPD, INH 01/08/21 Discontinued Reported Medications Amlodipine Besylate (AMLODIPINE BESYLATE) 10 Mg Tablet, 10 MG PO HS for HTN, TAB 01/08/21 Furosemide (FUROSEMIDE) 40 Mg Tablet, 40 MG PO DAILY for SWELLING, TAB 01/08/21 CJ HAZEL MD Apr 01, 2021 11:42
--- NOTE | 2021-04-01 12:26 | NUR ---
NURSING NOTE DISCHARGE PT DISCHARGED HOME VIA WHEELCHAIR PICKED UP BY . PT GIVEN WRITTEN AND VERBAL DISCHARGE INSTRUCTIONS, SCRIPTS SENT TO [place]. SARAN GIVEN DISCHARGE INFORMATION. [facility] WILL BE IN CONTACT WITH PT. IRVING YOON.
[2021-04-12] MEDS ORDERED: CHOLECALCIFEROL (VITAMIN D3) 50,000 UNIT CAPSULE PO SCH (09:00)
== END 2021-04-01 12:30 | disposition home health service (06) | DRG 177 ==
LOC: ER 20:58 → 1 SOUTH 23:05
PROVIDERS: ADMIT Internal Medicine; ATTEND Internal Medicine
DX: J15.6 Pneumonia due to other Gram-negative bacteria (principal); I50.33 Acute on chronic diastolic (congestive) heart failure; J96.21 Acute and chronic respiratory failure with hypoxia; I13.0 Hypertensive heart and chronic kidney disease with heart failure and stage 1 through stage 4 chronic kidney disease, or unspecified chronic kidney disease; E87.1 Hypo-osmolality and hyponatremia; I48.20 Chronic atrial fibrillation, unspecified; N17.9 Acute kidney failure, unspecified; J15.9 Unspecified bacterial pneumonia; D35.02 Benign neoplasm of left adrenal gland; E11.22 Type 2 diabetes mellitus with diabetic chronic kidney disease; E78.5 Hyperlipidemia, unspecified; F17.200 Nicotine dependence, unspecified, uncomplicated; I25.10 Atherosclerotic heart disease of native coronary artery without angina pectoris; I35.0 Nonrheumatic aortic (valve) stenosis; J43.2 Centrilobular emphysema; N18.9 Chronic kidney disease, unspecified; Z79.01 Long term (current) use of anticoagulants; Z79.4 Long term (current) use of insulin; Z95.1 Presence of aortocoronary bypass graft; Z95.2 Presence of prosthetic heart valve; Z20.822 Contact with and (suspected) exposure to COVID-19
CPT/HCPCS: 36415; 71250; 80048; 80053; 81001; 82803; 82947; 83735; 83880; 84484; 85007; 85025; 85610; 85730; 87040; 90471; 90686; 93005; 93306; 94640; 94760; 96365; 96366; 96375; J1815; J1940; J1956; J7120; J8540; U0003; 97116; 97530; 99285-25; J7613

== ENCOUNTER 2021-04-16 20:55 | Inpatient (IN) | payer MEDICARE ==
[~2021-04-16] VITALS: Ht 167.6 cm; Wt 65.9 kg
[~2021-04-16 20:55] MED LIST changes: +FURO-68 PO; +LEVO750T5 PO
--- NOTE | 2021-04-16 21:54 | PHYS DOC ---
Past History Past Medical History: CAD, CHF, COPD, Diabetes Additional Past Medical Histor: valve replacement 3 weeks ago,emphazema (ZEKE APPIAH APRN) Past Surgical History: No Surgical History Additional Past Surgical Histo: Heart valve replacement (ZEKE APPIAH APRN) Smoking: Quit Greater Than 1 Year Alcohol Use: None Drug Use: None (ZEKE APPIAH APRN) General Adult EDM: Chief Complaint: FEVER HPI: HPI: Patient is an 80-year-old male being seen in the ER for a 2-hour history of fever and chills with mild increase in shortness of breath. Patient's states that his temperature was elevated. No treatment prior to arrival. Patient denies cough, nausea, vomiting, sore throat, chest pain, abdominal pain, dysuria, sick exposures. He is vaccinated for COVID-19 and influenza. Patient has a history of COPD and wears 2 L via nasal cannula at all times, patient is mildly tachycardic but not hypoxic on his oxygen. (ZEKE APPIAH APRN) Review of Systems: Review of Systems: 14 body systems of the review of systems have been reviewed. See HPI for pertinent positive and negative responses, otherwise all other systems are negative, nonpertinent or noncontributory (ZEKE APPIAH APRN) Current Medications: Current Meds: Current Medications Medications (Trade) Dose Ordered Sig/Smith Start Time Stop Time Status Last Admin Dose Admin Acetaminophen (Tylenol) 650 mg 1X ONCE 04/16/21 22:00 04/16/21 22:01 Sodium Chloride 1,000 ml @ 1,000 mls/hr 1X ONCE 04/16/21 22:00 04/16/21 22:59 (ZEKE APPIAH APRN) Allergies: Allergies: Allergies Coded Allergies Type Severity Reaction Last Updated Verified No Known Drug Allergies 03/28/21 No (ZEKE APPIAH APRN) Physical Exam: PE: Constitutional: Well developed, well nourished, no acute distress, non-toxic appearance. [] HENT: Normocephalic, atraumatic, bilateral external ears normal, oropharynx moist, no oral exudates, nose normal. [] Eyes: PERRL, EOMI, conjunctiva normal, no discharge. [] Neck: Normal range of motion, no stridor Cardiovascular:Heart rate tachycardic rhythm, no murmur [] Lungs & Thorax: Bilateral breath sounds clear but diminished to auscultation [] Abdomen: Bowel sounds normal, soft, no tenderness, no masses, no pulsatile masses. [] Skin: Warm, dry, no erythema, no rash. [] Back: Normal range of motion Extremities: No tenderness, no cyanosis, no clubbing, ROM intact, no edema. [] Neurologic: Alert and oriented X 3, normal motor function, normal sensory function, no focal deficits noted. [] Psychologic: Affect normal, judgement normal, mood normal. [] (ZEKE APPIAH APRN) Current Patient Data: Labs: Laboratory Tests Test 04/16/21 21:20 04/16/21 22:19 04/16/21 22:30 Urine Collection Type Unknown Urine Color Yellow Urine Clarity Clear Urine pH 5.0 Urine Specific [place] 1.025 Urine Protein 100 mg/dl Urine Glucose (UA) 500 mg/dL Urine Ketones (Stick) Neg mg/dL Urine Blood Small Urine Nitrite Neg Urine Bilirubin Neg Urine Urobilinogen Dipstick 0.2 mg/dL Urine Leukocyte Esterase Neg Urine RBC 0 /HPF Urine WBC 0 /HPF Urine Squamous Epithelial Cells Few /LPF Urine Bacteria Few /HPF White Blood Count 14.0 x10^3/uL Red Blood Count 4.12 x10^6/uL Hemoglobin 11.0 g/dL Hematocrit 34.4 % Mean Corpuscular Volume 84 fL Mean Corpuscular Hemoglobin 27 pg Mean Corpuscular Hemoglobin Concent 32 g/dL Red Cell Distribution Width 15.9 % Platelet Count 217 x10^3/uL Neutrophils (%) (Auto) 89 % Lymphocytes (%) (Auto) 3 % Monocytes (%) (Auto) 7 % Eosinophils (%) (Auto) 2 % Basophils (%) (Auto) 1 % Neutrophils # (Auto) 12.4 x10^3uL Lymphocytes # (Auto) 0.4 x10^3/uL Monocytes # (Auto) 0.9 x10^3/uL Eosinophils # (Auto) 0.2 x10^3/uL Basophils # (Auto) 0.1 x10^3/uL Sodium Level 139 mmol/L Potassium Level 4.4 mmol/L Chloride Level 102 mmol/L Carbon Dioxide Level 25 mmol/L Anion Gap 12 Blood Urea Nitrogen 29 mg/dL Creatinine 1.5 mg/dL Estimated GFR (Cockcroft-Gault) 44.9 BUN/Creatinine Ratio 19 Glucose Level 208 mg/dL Lactic Acid Level 3.0 mmol/L Calcium Level 8.8 mg/dL Total Bilirubin 0.4 mg/dL Aspartate Amino Transf (AST/SGOT) 13 U/L Alanine Aminotransferase (ALT/SGPT) 18 U/L Alkaline Phosphatase 94 U/L Troponin I Quantitative < 0.017 ng/mL Total Protein 6.6 g/dL Albumin 3.4 g/dL Albumin/Globulin Ratio 1.1 Influenza Type A (Rapid) Negative Influenza Type B (Rapid) Negative Current Medications Medications (Trade) Dose Ordered Sig/Smith Route PRN Reason Start Time Stop Time Status Last Admin Dose Admin Sodium Chloride 1,000 ml @ 1,000 mls/hr 1X ONCE IV 04/16/21 22:00 04/16/21 22:59 DC 04/16/21 22:43 Acetaminophen (Tylenol) 650 mg 1X ONCE PO 04/16/21 22:00 04/16/21 22:01 DC 04/16/21 22:11 Sodium Chloride 1,000 ml @ 1,000 mls/hr 1X ONCE IV 04/16/21 23:30 04/17/21 00:29 Ceftriaxone Sodium 1 gm/ Sodium Chloride 50 ml @ 100 mls/hr 1X ONCE IV 04/16/21 23:30 04/16/21 23:25 DC Azithromycin 500 mg/Sodium Chloride 250 ml @ 250 mls/hr 1X ONCE IV 04/16/21 23:30 04/17/21 00:29 Vancomycin HCl (Vanco Per Pharmacy) 1 each 1X PRN MC SEE COMMENTS 04/16/21 23:30 UNV Piperacillin Sod/ Tazobactam Sod 4.5 gm/Sodium Chloride 50 ml @ 100 mls/hr 1X ONCE IV 04/16/21 23:30 04/16/21 23:59 UNV Vital Signs: Vital Signs Date Time Temp Pulse Resp B/P (MAP) Pulse Ox O2 Delivery O2 Flow Rate FiO2 04/16/21 21:00 102.1 139 32 159/76 (103) 94 Nasal Cannula 2.5 (ZEKE APPIAH APRN) EKG: EKG: EKG performed by ER staff at 2159 shows sinus tachycardia with a rate of 107, no STEMI read by Dr. Cohen at 2205 (ZEKE APPIAH APRN) Radiology/Procedures: Radiology/Procedures: [] (ZEKE APPIAH APRN) Heart Score: C/O Chest Pain: No Risk Factors: Risk Factors: DM, Current or recent (<one month) smoker, HTN, HLP, family history of CAD, obesity. Risk Scores: Score 0 - 3: 2.5% MACE over next 6 weeks - Discharge Home Score 4 - 6: 20.3% MACE over next 6 weeks - Admit for Clinical Observation Score 7 - 10: 72.7% MACE over next 6 weeks - Early Invasive Strategies (ZEKE APPIAH APRN) Course & Med Decision Making: Course & Med Decision Making Pertinent Labs and Imaging studies reviewed. (See chart for details) [] Patient presents to the emergency department for fever and chills. Patient was noted to be tachycardic, no hypoxia noted on home oxygen at 2 L via nasal cannula. Work-up in the ER consisted of blood work, urinalysis, chest x-ray, EKG. Patient's fever treated in the ER and he was also given a liter of normal saline. Urinalysis was negative. Patient was noted to have leukocytosis with a white blood cell count of 14. Patient had elevation in BUN and creatinine but that is at patient's baseline. He was noted to have lactic acidosis. Influenza negative. Pending Covid at this time. CXR shows pneumonia as read by physician. Patient continues to be mildly tachycardic with a heart rate of 99- 102. Patient is also noted to have a fever of 102.1 while in the ER and this was treated with Tylenol. Patient is meeting severe sepsis criteria at this time. He will be ordered sepsis fluids, and antibiotics. It appears that patient was admitted for CHF exacerbation and CAP on March 28 at this hospital. At that time he did receive IV antibiotics. I discussed patient's findings with Dr. Hurley who agreed to accept the patient under his services for severe sepsis/HCAP. Bridge orders placed. I discussed patient's findings with him and his . They are agreeable to admission at this time. (ZEKE APPIAH APRN) Dragon Disclaimer: Dragon Disclaimer: This electronic medical record was generated, in whole or in part, using a voice recognition dictation system. (ZEKE APPIAH APRN) Departure Departure: Impression: Primary Impression: HCAP (healthcare-associated pneumonia) Additional Impression: Sepsis Qualified Codes: A41.9 - Sepsis, unspecified organism Disposition: 09 ADMITTED INPATIENT Admitting Physician: Hermelinda Hurley (ZEKE APPIAH APRN) Condition: STABLE Referrals: PREETHI MENA MD (PCP) Attending Signature Attending Signature I have reviewed the PA/SEX WORKER OR ESCORT's note and plan of care. I was available for consultation as needed during the patient's visit in the emergency department. I agree with the clinical impression, plan, and disposition. (RADHA COHEN DO) ZEKE APPIAH APRN Apr 16, 2021 21:54 RADHA COHEN DO Apr 17, 2021 01:46
[2021-04-16] MEDS ORDERED: ACETAMINOPHEN 325 MG TABLET PO ONE (22:00)
[2021-04-16] MEDS ORDERED: IV NORMAL SALINE 1,000ML 1,000 ML IV ONE ×2 (22:00→23:30)
[2021-04-16 22:05] LABS: COLOR,URINE YELLOW
[2021-04-16 22:06] LABS: BACTERIA,URINE FEW /HPF (0-FEW); BILIRUBIN,URINE NEG (NEG); CLARITY,URINE CLEAR; GLUCOSE,URINE 500 mg/dL (NEG); NITRITE,URINE NEG (NEG); RBC,URINE 0 /HPF (0-2); SQUAMOUS EPITHELIAL CELL,UR FEW /LPF; UROBILINOGEN,URINE 0.2 mg/dL (0.2 mg/dL); WBC,URINE 0 /HPF (0-4)
[2021-04-16 22:47] LABS: BASO # 0.1 x10^3/uL (0.0-0.2); BASO % 1 % (0-3); EOS # 0.2 x10^3/uL (0.0-0.7); EOS % 2 % (0-3); HEMATOCRIT 34.4 % (39.0-53.0); LYMPH # 0.4 x10^3/uL (1.0-4.8); LYMPH % 3 % (24-48); MEAN CORPUSCULAR HEMOGLOBIN 27 pg (25-35); MEAN CORPUSCULAR HGB CONC 32 g/dL (31-37); MEAN CORPUSCULAR VOLUME 84 fL (79-100); MONO # 0.9 x10^3/uL (0.0-1.1); MONO % 7 % (0-9); NEUT # 12.4 x10^3uL (1.8-7.7); NEUT % 89 % (31-73); PLATELET COUNT 217 x10^3/uL (140-400); RED BLOOD COUNT 4.12 x10^6/uL (4.30-5.70); RED CELL DISTRIBUTION WIDTH 15.9 % (11.5-14.5)
[2021-04-16 22:56] LABS: CALCIUM 8.8 mg/dL (8.5-10.1); CREATININE 1.5 mg/dL (0.7-1.3); GFR 44.9; POTASSIUM 4.4 mmol/L (3.5-5.1)
[2021-04-16 23:02] LABS: ALBUMIN 3.4 g/dL (3.4-5.0); ALBUMIN/GLOBULIN RATIO 1.1 (1.0-1.7); TOTAL BILIRUBIN 0.4 mg/dL (0.2-1.0); TOTAL PROTEIN 6.6 g/dL (6.4-8.2)
[2021-04-16 23:10] LABS: INFLUENZA A PATIENT NEGATIVE (NEGATIVE); INFLUENZA B PATIENT NEGATIVE (NEGATIVE)
[2021-04-16] MEDS ORDERED: VANCOMYCIN PER PHARMACY MC PRN (23:30)
[2021-04-16] MEDS ORDERED: AZITHROMYCIN 500 MG in IV NORMAL SALINE 250ML 250 ML IV ONE (23:30)
--- NOTE | 2021-04-16 23:31 | RAD ---
XR CHEST 1V History: Reason: soa / Spl. Instructions: / History: Comparison: February 20, 2021 Findings: Diffuse interstitial thickening with ill-defined opacities. Small bilateral pleural effusions. Enlarg ed cardiac size, unchanged. Prior median sternotomy. No pneumothorax. Impression: 1. Moderate diffuse interstitial thickening with ill-defined opacities, may represent pulmonary anastasiia a or infection. 2. Small bilateral pleural effusions. Electronically signed by: Angelo Gurrola DO (04/16/2021 11:28 PM) [facility]
[2021-04-16] MEDS ORDERED: IV NORMAL SALINE 50ML 50 ML ONE (23:44)
[2021-04-16] MEDS ORDERED: PIPERACILLIN/TAZOBACTAM 4.5 GM VIAL IV ONE (23:44)
[2021-04-17] MEDS ORDERED: PIPERACILLIN/TAZOBACTAM 4.5 GM in IV NORMAL SALINE 50ML 50 ML IV ONE
[2021-04-17] MEDS ORDERED: VANCOMYCIN 1.75 GM in IV NORMAL SALINE 500ML 500 ML IV ONE
--- NOTE | 2021-04-17 00:38 | EKG ---
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
[2021-04-17 01:08] VITALS: BP 145/69
--- NOTE | 2021-04-17 02:38 | NUR ---
The patient, DEMETRA MILTON, 80 y/o, M admitted by CJ HAZEL MD, was given written information regarding hospital policies, unit procedures and contact persons. Valuables were checked and vital signs noted. PT stated he had been having increasing SOA for several hours prior to arrival at ER. PT normally on 2L O2 at home, increased to 2.5 and came to ER. PT currently on 2.5L NC, saturating 95%. PT oriented to unit. Reviewed with PT his PMH, PSH, SH, FH and medications with adjustments made from prior admission.
--- NOTE | 2021-04-17 04:48 | NUR ---
Pharmacy Vancomycin Dosing Note S:Consulted to monitor and dose vancomycin started 04/17/21. O:ESDRASDEMETRA Purcell is a 80 year old M with Sepsis HCAP, . Height: 5 feet, 6 inches Weight: 65.9 kg [place] Body Weight: 63.80 Adjusted Body Weight: 64.64 Dosing Weight: Actual Other Antibiotics: LABS: Last BUN: 29 Last Creatinine: 1.5 Creatinine Clearance: 35 Last WBC: 14 Last Procalcitonin: Tmax (past 24 hours): Microbiology: I/O: Drug Levels: Last level: on at Last dose given 04/17/21 at 0200 Vancomycin Dosing: Loading Dose: 1750 mg x1 Dosing Weight: Actual Target Trough: 15-20 A: Based on: WT AND CRCL P: 1. Begin Vancomycin 1000 mg IV q24h 2. Follow up Trough level on 04/18/21 at 2230 3. Pharmacy will continue to monitor, follow and adjust therapy as needed. ANDREAS PEDROZA RPH, 04/17/21 0448 Signed: 04/17/21 at 447 by ANDREAS PEDROZA RPH PHA
[2021-04-17 05:37] VITALS: BP 138/78
[2021-04-17 06:09] LABS: BASO % 0 % (0-3); EOS # 0.1 x10^3/uL (0.0-0.7); EOS % 1 % (0-3); HEMATOCRIT 28.8 % (39.0-53.0); HEMOGLOBIN 9.2 g/dL (13.0-17.5); LYMPH # 1.4 x10^3/uL (1.0-4.8); LYMPH % 11 % (24-48); MEAN CORPUSCULAR HEMOGLOBIN 27 pg (25-35); MEAN CORPUSCULAR HGB CONC 32 g/dL (31-37); MEAN CORPUSCULAR VOLUME 83 fL (79-100); MONO % 8 % (0-9); NEUT # 10.8 x10^3uL (1.8-7.7); NEUT % 81 % (31-73); PLATELET COUNT 172 x10^3/uL (140-400); RED BLOOD COUNT 3.46 x10^6/uL (4.30-5.70); RED CELL DISTRIBUTION WIDTH 16.2 % (11.5-14.5); WHITE BLOOD COUNT 13.3 x10^3/uL (4.0-11.0)
[2021-04-17 06:24] LABS: ALBUMIN 2.5 g/dL (3.4-5.0); ALBUMIN/GLOBULIN RATIO 0.9 (1.0-1.7); CREATININE 1.4 mg/dL (0.7-1.3); GFR 48.6; POTASSIUM 4.4 mmol/L (3.5-5.1); TOTAL BILIRUBIN 0.5 mg/dL (0.2-1.0); TOTAL PROTEIN 5.4 g/dL (6.4-8.2)
[2021-04-17 11:10] VITALS: BP 146/79
--- NOTE | 2021-04-17 12:05 | HP ---
ADMIT DATE: 04/16/2021 ATTENDING PHYSICIAN: Dr. Baum. CHIEF COMPLAINT: Chills and shortness of breath. HISTORY OF PRESENT ILLNESS: The patient is an 80-year-old gentleman well known to us from several recent admissions. He presented to the ED with a new onset of fevers, chills, increasing shortness of breath. The patient's states his temperature is elevated, but did not give an actual reading. Workup in the ED showed an x-ray consistent with atypical infiltrates, bilateral pleural effusions. He has chronic congestive heart failure. He has a history of COPD. He has been vaccinated for COVID-19 and influenza. He is admitted then with a community-acquired pneumonia. Zithromax and vancomycin have been started. PAST MEDICAL HISTORY: Significant for a recent TAVR procedure for critical aortic stenosis. He has COPD, diabetes, congestive heart failure, coronary artery disease. He had a recent admission in February, which I took care of him. I ended up transferring him to [facility]. He had paroxysmal atrial fibrillation and chronic respiratory failure. They did cardioversion at that time, they were unsuccessful. He stayed out of sinus rhythm. SOCIAL HISTORY: He is a nonsmoker and nondrinker; he smoked heavily in the past. CURRENT MEDICATIONS: Reviewed. From home, he was taking aspirin, Lipitor, Restasis eye drop, diltiazem 240 daily, Lasix, insulin, triamcinolone, Anoro Ellipta, vitamin C and Coumadin 5 mg p.o. daily. FAMILY HISTORY: Noncontributory. REVIEW OF SYSTEMS: Significant for dyspnea on minimal exertion. He is now a DNR per advanced directive. He had been a FULL CODE 2 months ago. All other systems were reviewed and turned out to be negative. He has had his COVID vaccines. OBJECTIVE FINDINGS: VITAL SIGNS: Blood pressure on admission was 140/72, pulse is 90 and regular. He was afebrile. Oxygen saturation 95% on room air. HEENT: Head is without trauma. Pupils are reactive. Sclerae nonicteric. Oropharynx clear. NECK: Supple, no bruits. LUNGS: Bibasilar crackles. CARDIOVASCULAR: Showed distant heart tones, a harsh machinery type murmur, and there are no gallops. Peripheral pulses are palpable and full. ABDOMEN: Soft, scaphoid, nontender. EXTREMITIES: Show trace edema. NEUROLOGIC: Focally intact. Speech is fluent. PERTINENT LABORATORY STUDIES: Hemoglobin is 11.0 g/dL, white count 14,000. Creatinine is 1.5 mg/dL. Nonfasting blood sugar 208. First set of cardiac enzymes negative for coronary ischemia. Chest x-ray in the ED showed evidence of diffuse interstitial thickening, ill-defined opacities, pleural effusions identified. ASSESSMENT: 1. An 80-year-old gentleman with [id number] respiratory failure. 2. Community-acquired pneumonia. 3. History of aortic stenosis with transcatheter aortic valve replacement procedure. 4. Chronic obstructive pulmonary disease. 5. Anemia of chronic disease. 6. Type 2 diabetes. PLAN: 1. Continue antibiotics as ordered. 2. Follow up chest x-ray. 3. Continue home meds. 4. He is now a DNR per advanced directive. Prognosis remains guarded. FLACO DR: Chacha TID: [id number] CC: PREETHI MENA MD
[2021-04-17] MEDS ORDERED: DEXTROSE 50% 25 GM / 50ML DISP.SYRIN. IV PRN (12:15)
--- NOTE | 2021-04-17 14:42 | PHYS DOC ---
Past History Past Medical History: CAD, CHF, COPD, Diabetes Additional Past Medical Histor: valve replacement 3 weeks ago,emphazema (ZEKE APPIAH APRN) Past Surgical History: No Surgical History Additional Past Surgical Histo: Heart valve replacement (ZEKE APPIAH APRN) Smoking: Quit Greater Than 1 Year Alcohol Use: Occasionally Drug Use: None (ZEKE APPIAH APRN) General Adult EDM: Chief Complaint: FEVER HPI: HPI: Patient is a [age] year old [sex] who presents with [] (ZEKE APPIAH APRN) Review of Systems: Review of Systems: Constitutional: Denies fever or chills Eyes: Denies change in visual acuity HENT: Denies nasal congestion or sore throat Respiratory: Denies cough or shortness of breath Cardiovascular: Denies chest pain or edema GI: Denies abdominal pain, nausea, vomiting, bloody stools or diarrhea : Denies dysuria Musculoskeletal: Denies back pain or joint pain Integument: Denies rash Neurologic: Denies headache, focal weakness or sensory changes Endocrine: Denies polyuria or polydipsia Lymphatic: Denies swollen glands Psychiatric: Denies depression or anxiety (ZEKE APPIAH APRN) Current Medications: Current Meds: Current Medications Medications (Trade) Dose Ordered Sig/Smith Start Time Stop Time Status Last Admin Dose Admin Acetaminophen (Tylenol) 650 mg 1X ONCE 04/16/21 22:00 04/16/21 22:01 DC 04/16/21 22:11 650 MG Azithromycin 500 mg/Sodium Chloride 250 ml @ 250 mls/hr 1X ONCE 04/16/21 23:30 04/17/21 00:29 DC 04/17/21 01:02 250 MLS/HR Ceftriaxone Sodium 1 gm/ Sodium Chloride 50 ml @ 100 mls/hr 1X ONCE 04/16/21 23:30 04/16/21 23:25 DC Piperacillin Sod/ Tazobactam Sod (Zosyn) 4.5 gm STK-MED ONCE 04/16/21 23:44 04/16/21 23:44 DC Sodium Chloride 50 ml @ As Directed STK-MED ONCE 04/16/21 23:44 04/16/21 23:44 DC Vancomycin HCl (Vanco Per Pharmacy) 1 each PRN DAILY PRN 04/16/21 23:30 04/17/21 11:24 DC 04/17/21 04:47 1 EACH (ZEKE APPIAH APRN) Allergies: Allergies: Allergies Coded Allergies Type Severity Reaction Last Updated Verified No Known Drug Allergies 03/28/21 No (ZEKE APPIAH APRN) Physical Exam: PE: Constitutional: Well developed, well nourished, no acute distress, non-toxic appearance. [] HENT: Normocephalic, atraumatic, bilateral external ears normal, oropharynx mois t, no oral exudates, nose normal. [] Eyes: PERRLA, EOMI, conjunctiva normal, no discharge. [] Neck: Normal range of motion, no tenderness, supple, no stridor. [] Cardiovascular:Heart rate regular rhythm, no murmur [] Lungs & Thorax: Bilateral breath sounds clear to auscultation [] Abdomen: Bowel sounds normal, soft, no tenderness, no masses, no pulsatile masses. [] Skin: Warm, dry, no erythema, no rash. [] Back: No tenderness, no CVA tenderness. [] Extremities: No tenderness, no cyanosis, no clubbing, ROM intact, no edema. [] Neurologic: Alert and oriented X 3, normal motor function, normal sensory function, no focal deficits noted. [] Psychologic: Affect normal, judgement normal, mood normal. [] (ZEKE APPIAH APRN) Current Patient Data: Labs: Laboratory Tests Test 04/16/21 21:20 04/16/21 22:19 04/16/21 22:30 04/17/21 02:32 Urine Collection Type Unknown Urine Color Yellow Urine Clarity Clear Urine pH 5.0 Urine Specific [place] 1.025 Urine Protein 100 mg/dl (NEG-TRACE) Urine Glucose (UA) 500 mg/dL (NEG) Urine Ketones (Stick) Neg mg/dL (NEG) Urine Blood Small (NEG) Urine Nitrite Neg (NEG) Urine Bilirubin Neg (NEG) Urine Urobilinogen Dipstick 0.2 mg/dL (0.2 mg/dL) Urine Leukocyte Esterase Neg (NEG) Urine RBC 0 /HPF (0-2) Urine WBC 0 /HPF (0-4) Urine Squamous Epithelial Cells Few /LPF Urine Bacteria Few /HPF (0-FEW) White Blood Count 14.0 x10^3/uL (4.0-11.0) H Red Blood Count 4.12 x10^6/uL (4.30-5.70) L Hemoglobin 11.0 g/dL (13.0-17.5) L Hematocrit 34.4 % (39.0-53.0) L Mean Corpuscular Volume 84 fL (79-100) Mean Corpuscular Hemoglobin 27 pg (25-35) Mean Corpuscular Hemoglobin Concent 32 g/dL (31-37) Red Cell Distribution Width 15.9 % (11.5-14.5) H Platelet Count 217 x10^3/uL (140-400) Neutrophils (%) (Auto) 89 % (31-73) H Lymphocytes (%) (Auto) 3 % (24-48) L Monocytes (%) (Auto) 7 % (0-9) Eosinophils (%) (Auto) 2 % (0-3) Basophils (%) (Auto) 1 % (0-3) Neutrophils # (Auto) 12.4 x10^3uL (1.8-7.7) H Lymphocytes # (Auto) 0.4 x10^3/uL (1.0-4.8) L Monocytes # (Auto) 0.9 x10^3/uL (0.0-1.1) Eosinophils # (Auto) 0.2 x10^3/uL (0.0-0.7) Basophils # (Auto) 0.1 x10^3/uL (0.0-0.2) Sodium Level 139 mmol/L (136-145) Potassium Level 4.4 mmol/L (3.5-5.1) Chloride Level 102 mmol/L (98-107) Carbon Dioxide Level 25 mmol/L (21-32) Anion Gap 12 (6-14) Blood Urea Nitrogen 29 mg/dL (8-26) H Creatinine 1.5 mg/dL (0.7-1.3) H Estimated GFR (Cockcroft-Gault) 44.9 BUN/Creatinine Ratio 19 (6-20) Glucose Level 208 mg/dL (70-99) H Lactic Acid Level 3.0 mmol/L (0.4-2.0) H 1.8 mmol/L (0.4-2.0) Calcium Level 8.8 mg/dL (8.5-10.1) Total Bilirubin 0.4 mg/dL (0.2-1.0) Aspartate Amino Transferase (AST) 13 U/L (15-37) L Alanine Aminotransferase (ALT) 18 U/L (16-63) Alkaline Phosphatase 94 U/L (46-116) Troponin I Quantitative < 0.017 ng/mL (0-0.055) Total Protein 6.6 g/dL (6.4-8.2) Albumin 3.4 g/dL (3.4-5.0) Albumin/Globulin Ratio 1.1 (1.0-1.7) Influenza Type A (Rapid) Negative (NEGATIVE) Influenza Type B (Rapid) Negative (NEGATIVE) Test 04/17/21 05:50 04/17/21 11:38 04/17/21 11:57 White Blood Count 13.3 x10^3/uL (4.0-11.0) H Red Blood Count 3.46 x10^6/uL (4.30-5.70) L Hemoglobin 9.2 g/dL (13.0-17.5) L Hematocrit 28.8 % (39.0-53.0) L Mean Corpuscular Volume 83 fL (79-100) Mean Corpuscular Hemoglobin 27 pg (25-35) Mean Corpuscular Hemoglobin Concent 32 g/dL (31-37) Red Cell Distribution Width 16.2 % (11.5-14.5) H Platelet Count 172 x10^3/uL (140-400) Neutrophils (%) (Auto) 81 % (31-73) H Lymphocytes (%) (Auto) 11 % (24-48) L Monocytes (%) (Auto) 8 % (0-9) Eosinophils (%) (Auto) 1 % (0-3) Basophils (%) (Auto) 0 % (0-3) Neutrophils # (Auto) 10.8 x10^3uL (1.8-7.7) H Lymphocytes # (Auto) 1.4 x10^3/uL (1.0-4.8) Monocytes # (Auto) 1.0 x10^3/uL (0.0-1.1) Eosinophils # (Auto) 0.1 x10^3/uL (0.0-0.7) Basophils # (Auto) 0.0 x10^3/uL (0.0-0.2) Sodium Level 139 mmol/L (136-145) Potassium Level 4.4 mmol/L (3.5-5.1) Chloride Level 106 mmol/L (98-107) Carbon Dioxide Level 26 mmol/L (21-32) Anion Gap 7 (6-14) Blood Urea Nitrogen 30 mg/dL (8-26) H Creatinine 1.4 mg/dL (0.7-1.3) H Estimated GFR (Cockcroft-Gault) 48.6 BUN/Creatinine Ratio 21 (6-20) H Glucose Level 162 mg/dL (70-99) H Calcium Level 8.0 mg/dL (8.5-10.1) L Total Bilirubin 0.5 mg/dL (0.2-1.0) Aspartate Amino Transferase (AST) 16 U/L (15-37) Alanine Aminotransferase (ALT) 17 U/L (16-63) Alkaline Phosphatase 69 U/L (46-116) Total Protein 5.4 g/dL (6.4-8.2) L Albumin 2.5 g/dL (3.4-5.0) L Albumin/Globulin Ratio 0.9 (1.0-1.7) L Prothrombin Time 33.3 SEC (9.4-11.4) H Prothrombin Time INR 3.2 (0.9-1.1) H Glucose (Fingerstick) 124 mg/dL (70-99) H Vital Signs: Vital Signs Date Time Temp Pulse Resp B/P (MAP) Pulse Ox O2 Delivery O2 Flow Rate FiO2 04/17/21 11:10 97.9 77 18 146/79 (101) 04/17/21 08:20 Room Air 04/17/21 05:37 94 2.5 (ZEKE APPIAH APRN) EKG: EKG: [] (ZEKE APPIAH APRN) Radiology/Procedures: Radiology/Procedures: [] (ZEKE APPIAH APRN) Heart Score: C/O Chest Pain: No Risk Factors: Risk Factors: DM, Current or recent (<one month) smoker, HTN, HLP, family history of CAD, obesity. Risk Scores: Score 0 - 3: 2.5% MACE over next 6 weeks - Discharge Home Score 4 - 6: 20.3% MACE over next 6 weeks - Admit for Clinical Observation Score 7 - 10: 72.7% MACE over next 6 weeks - Early Invasive Strategies (ZEKE APPIAH APRN) Course & Med Decision Making: Course & Med Decision Making Pertinent Labs and Imaging studies reviewed. (See chart for details) [] (ZEKE APPIAH APRN) Dragon Disclaimer: Dragon Disclaimer: This electronic medical record was generated, in whole or in part, using a voice recognition dictation system. (ZEKE APPIAH APRN) Departure Departure: Impression: Primary Impression: Sepsis Qualified Codes: A41.9 - Sepsis, unspecified organism Additional Impression: Pneumonia Qualified Codes: J18.9 - Pneumonia, unspecified organism Disposition: ADMITTED INPATIENT Condition: STABLE Referrals: PREETHI MENA MD (PCP) ZEKE APPIAH APRN Apr 17, 2021 14:42 RADHA COHEN DO Apr 19, 2021 13:09
[2021-04-17 15:19] VITALS: BP 145/79
[2021-04-17] MEDS: WARFARIN 5 MG TABLET. PO SCH (16:00)
[2021-04-17] MEDS: INSULIN LISPRO 300 UNITS/3 ML VIAL. SQ SCH (17:00)
[2021-04-17] MEDS: REPAGLINIDE 0.5 MG TABLET PO SCH (18:10)
--- NOTE | 2021-04-17 18:41 | NUR ---
Nursing note PT admitted to the floor from in the ED by janice lujan. PT placed in bed, provided with fluids and a warm blanket, bed low call light within reach.
[2021-04-17 19:11] VITALS: BP 144/83
[2021-04-17] MEDS ORDERED: VANCOMYCIN 1 GM in IV NORMAL SALINE 250ML 250 ML IV SCH (23:00)
[2021-04-17 23:15] VITALS: BP 134/70
[2021-04-18 05:16] VITALS: BP 144/71
[2021-04-18 06:04] LABS: CALCIUM 8.1 mg/dL (8.5-10.1); CREATININE 1.1 mg/dL (0.7-1.3); GFR 64.2; POTASSIUM 4.2 mmol/L (3.5-5.1)
[2021-04-18] MEDS: INSULIN LISPRO 300 UNITS/3 ML VIAL. SQ SCH ×3 (08:00→16:53)
[2021-04-18] MEDS: ASPIRIN CHEWABLE 81 MG TABLET. PO SCH (08:19)
[2021-04-18] MEDS: FUROSEMIDE 40 MG TABLET PO SCH (08:20)
[2021-04-18] MEDS: ATORVASTATIN CALCIUM 20 MG TABLET PO SCH (08:20)
[2021-04-18] MEDS: INSULIN GLARGINE SYRINGE. SQ SCH (09:03)
[2021-04-18 10:48] VITALS: BP 159/75
--- NOTE | 2021-04-18 11:56 | PN ---
DATE: 04/18/2021 ATTENDING PHYSICIAN: Dr. Baum. SUBJECTIVE: He is doing better. Breathing well. He is having no new complaints. OBJECTIVE FINDINGS: VITAL SIGNS: Blood pressure this morning is 144/71 mmHg, pulse is 80 and regular. He is afebrile with a temperature 98.5 degrees Fahrenheit and his oxygen saturation 91% on 2 liters by nasal cannula. HEENT: Head is without trauma. Pupils are reactive. Sclerae nonicteric. Oropharynx clear. NECK: Supple, no bruits. LUNGS: Good breath sounds. He has minimal crackles at both bases. CARDIOVASCULAR: Showed regular heart tones. No gallops. ABDOMEN: Soft. EXTREMITIES: Without edema. NEUROLOGIC FUNCTION: Focally intact. PERTINENT LABORATORY STUDIES: Hemoglobin 9.2 g/dL, white count 13,000. Electrolytes within normal range. Creatinine is 1.1 mg percent, paradoxically improved with diuresis. Nonfasting blood sugar 121. ASSESSMENT: 1. An 80-year-old gentleman with acute on chronic congestive heart failure. 2. Acute on chronic respiratory failure, improved. 3. Probable pneumonia has been ruled out. 4. History of transcatheter aortic valve replacement procedure for aortic stenosis. 5. Chronic obstructive pulmonary disease. 6. Anemia of chronic disease. 7. Type 2 diabetes mellitus. PLAN: 1. Continue diuresis. 2. Follow up chest x-ray in the morning. 3. We can discontinue his antibiotics. 4. He remains a DNR per advanced directive. TANNER/PATRICIA DR: Chacha TID: [id number] CC: PREETHI MENA MD
[2021-04-18 16:00] VITALS: BP 141/75
[2021-04-18] MEDS: WARFARIN 5 MG TABLET. PO SCH (16:05)
[2021-04-18] MEDS: REPAGLINIDE 0.5 MG TABLET PO SCH (17:11)
[2021-04-18 20:04] VITALS: BP 152/70
[2021-04-18 22:36] VITALS: BP 143/51
[2021-04-19 05:41] VITALS: BP 140/83
--- NOTE | 2021-04-19 06:13 | RAD ---
XR CHEST 1V History: Reason: SOB / Spl. Instructions: / History: Comparison: April 16, 2021 Findings: Diffuse interstitial thickening with ill-defined opacities. Small bilateral pleural effusions. Enlarg ed cardiac size, unchanged. Prior median sternotomy. Impression: 1. Stable appearance of the chest compared to prior. Electronically signed by: Angelo Gurrola DO (04/19/2021 6:11 AM) [facility] [place]
[2021-04-19] MEDS: INSULIN LISPRO 300 UNITS/3 ML VIAL. SQ SCH ×3 (08:00→17:30)
[2021-04-19] MEDS: INSULIN GLARGINE SYRINGE. SQ SCH (09:58)
[2021-04-19] MEDS: ASPIRIN CHEWABLE 81 MG TABLET. PO SCH (10:00)
[2021-04-19] MEDS: ATORVASTATIN CALCIUM 20 MG TABLET PO SCH (10:00)
[2021-04-19] MEDS: FUROSEMIDE 40 MG TABLET PO SCH (10:01)
[2021-04-19 10:30] VITALS: BP 162/74
[2021-04-19 15:14] VITALS: BP 146/67
[2021-04-19] MEDS: WARFARIN 5 MG TABLET. PO SCH (16:39)
[2021-04-19] MEDS: REPAGLINIDE 0.5 MG TABLET PO SCH (17:31)
[2021-04-19 19:41] VITALS: BP 169/73
[2021-04-19 23:00] VITALS: BP 164/73
--- NOTE | 2021-04-19 23:51 | PN ---
DATE: 04/19/2021 ATTENDING PHYSICIAN: Dr. Baum. SUBJECTIVE: He is doing better. He wants to go home. OBJECTIVE FINDINGS: VITAL SIGNS: Blood pressure this morning is 162/74, pulse is 88 and regular. He is afebrile. Oxygen saturation 98% on 2 liters by nasal cannula. HEENT: Head is without trauma. Pupils are reactive. Sclerae nonicteric. Oropharynx is clear. NECK: Supple, no bruits. LUNGS: Good breath sounds. Minimal rhonchi at bases. CARDIOVASCULAR: Regular heart tones. No gallop. ABDOMEN: Soft. EXTREMITIES: Without edema. NEUROLOGIC: Focally intact. SKIN: Warm and dry. DIAGNOSTIC DATA: Followup chest x-ray showed cardiomegaly, vascular congestion, but improved from previous x-ray 2 days ago. ASSESSMENT: 1. An 80-year-old gentleman with acute on chronic respiratory failure. 2. Acute on chronic congestive heart failure, improved. 3. Pneumonia ruled out. 4. 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 5. Chronic obstructive pulmonary disease. 6. Anemia of chronic disease. 7. Type 2 diabetes. PLAN: 1. Continue diuresis. 2. We can stop his antibiotics. 3. DNR per advanced directives. 4. Tentative discharge plans for tomorrow. TANNER/FEDERICA ROQUE: TANNER/alyson TID: [id number]
[2021-04-20 06:19] VITALS: BP 151/76
[2021-04-20] MEDS: INSULIN LISPRO 300 UNITS/3 ML VIAL. SQ SCH (08:00)
[2021-04-20 08:39] VITALS: BP 151/76
[2021-04-20] MEDS: FUROSEMIDE 40 MG TABLET PO SCH (08:39)
[2021-04-20] MEDS: ASPIRIN CHEWABLE 81 MG TABLET. PO SCH (08:40)
[2021-04-20] MEDS: ATORVASTATIN CALCIUM 20 MG TABLET PO SCH (08:40)
[2021-04-20] MEDS: INSULIN GLARGINE SYRINGE. SQ SCH (08:56)
--- NOTE | 2021-04-20 09:50 | DS ---
DATE OF DISCHARGE: 04/20/2021 ATTENDING PHYSICIAN: Dr. Baum. FINAL DISCHARGE DIAGNOSES: 1. Acute on chronic congestive heart failure, improved. 2. Acute on chronic respiratory failure. 3. Pneumonia ruled out. 4. History of aortic stenosis with recent TAVR procedure. 5. Chronic obstructive pulmonary disease. 6. Type 2 diabetes. 7. Anemia of chronic disease. HISTORY AND PHYSICAL: The patient was admitted with increasing shortness of breath and chest x-ray evidence of vascular congestion, pneumonia cannot be ruled out. He was started on antibiotics with clearing of his infiltrates and lacking other symptoms. Antibiotics were stopped prior to discharge. PHYSICAL EXAMINATION: Please see the dictated note. PERTINENT LABORATORY AND X-RAY STUDIES: On this admission, his hemoglobin was 11.0 g/dL, white count 13,300. Chemistry panel, blood sugars were in the mid 100 range and well controlled. Electrolytes, creatinine was 1.1 mg/dL on admission, BUN 22, potassium 4.2 mEq, sodium 139. Cardiac enzymes negative for coronary ischemia. BNP was elevated at 6000. COURSE IN THE HOSPITAL: The patient was admitted, started on both antibiotics and diuresis. He did well. He did not have any pneumonia symptoms. No fevers and chest x-ray was clear. Antibiotics were discontinued. We continued daily chemistries, monitoring his blood sugars and followup x-ray. He improved. He wanted to go home and I felt this is reasonable. On the fourth hospital day, his lungs were clear, vital signs were stable. He was ready for discharge. At this time, the patient was discharged home with Lasix 80 mg p.o. daily, K-Dur 20 mEq daily, aspirin 81 mg daily, Restasis eye drop, diltiazem 360 daily, insulin as scheduled, Coumadin 5 mg daily for atrial fibrillation, vitamin A and E, and triamcinolone cream p.r.n. He is a DNR per advanced directive. His prognosis is fair. He had a normal INR 3.2, repeat was down to 1.8 prior to discharge. He will continue his Coumadin at same dose. The patient was then discharged from our hospital in stable condition with explicit drug and followup care. Total discharge time spent [address]: Chacha TID: [id number] CC: PREETHI MENA MD
--- NOTE | 2021-04-20 10:23 | NUR ---
Discharge note Pt discharged at 0119 via wheelchair accompanied by staff pt given written and verbal instructions with verbal statement of understanding received. Addendum: 04/20/21 at 1024 by SHWETHA PORTER RN Pt discharged at 1019
== END 2021-04-20 10:52 | disposition home or self-care (01) | DRG 291 ==
LOC: ER 20:55 → 1 SOUTH 23:46
PROVIDERS: ADMIT Internal Medicine; ATTEND Internal Medicine
DX: I50.23 Acute on chronic systolic (congestive) heart failure (principal); J96.20 Acute and chronic respiratory failure, unspecified whether with hypoxia or hypercapnia; I25.10 Atherosclerotic heart disease of native coronary artery without angina pectoris; Z66 Do not resuscitate; I48.0 Paroxysmal atrial fibrillation; J44.9 Chronic obstructive pulmonary disease, unspecified; Z20.822 Contact with and (suspected) exposure to COVID-19; D63.8 Anemia in other chronic diseases classified elsewhere; E11.9 Type 2 diabetes mellitus without complications; Z95.2 Presence of prosthetic heart valve; Z87.891 Personal history of nicotine dependence; Z79.82 Long term (current) use of aspirin; Z79.01 Long term (current) use of anticoagulants
CPT/HCPCS: 36415; 71045; 80048; 80053; 81001; 82947; 83605; 84484; 85025; 85610; 87040; 87804; 93005; 96361; 96365; 96366; J0456; J0696; J1815; J2543; J3370; J7040; J7050; U0003; 99285-25; J7030

== ENCOUNTER → 2021-11-18 | Outpatient (CLI) | payer MEDICARE ==
--- NOTE | 2021-11-18 16:32 | RAD ---
XR CHEST 2V History: Cough Comparison: 04/19/2021, 02/20/2021, 09/02/2017, 03/20/2016. Technique: PA and lateral chest radiographs. Findings: The lungs are adequately inflated. There are bilateral basilar reticular opacities which appear derrek r aerated than recent comparisons. No effusion or pneumothorax. Postsurgical changes of the mediastin um with mediastinal clips and sternotomy wires from suspected CABG. There is a atrial appendage occlu juanita device and a endovascular aortic valve replacement. Surgical clips in the upper abdomen. No acut e osseous abnormality. Impression: 1. Bilateral basilar interstitial opacities are favored represent chronic changes. No new airspace c onsolidation. Electronically signed by: Reji Mitchell MD (11/18/2021 4:30 PM) [id number]
== END ==
LOC: RAD 11:26
PROVIDERS: ATTEND Family Medicine
DX: R05.9 Cough, unspecified (principal)
CPT/HCPCS: 71046